=== PATIENT | male | born 2005 | race Caucasian/White ===

== ENCOUNTER 2023-10-26 12:12 | Inpatient (IN) ==
[2023-10-26] MEDS ORDERED: ONDANSETRON INJ 2 MG/ML 2 ML VIAL IV STA ×2 (12:51→14:03)
[2023-10-26 13:41] LABS: Basophils # (auto) 0.05 K/uL (0.00-0.20); Basophils % (auto) 0.3 %; Eosinophils # (auto) 0.08 K/uL (0.00-0.50); Eosinophils % (auto) 0.5 %; Hematocrit (blood only) 48.3 % (42.0-52.0); Hemoglobin 17.4 g/dl (14.0-18.0); Immature Granulocytes # (auto) 0.16 K/uL (0.01-0.20); Immature Granulocytes % (auto) 0.9 %; Lymphocytes # (auto) 0.98 K/uL (1.20-3.40); Lymphocytes % (auto) 5.6 %; Mean Corpuscular Hemoglobin 31.1 pg (25.0-34.0); Mean Corpuscular Volume 86.3 fL (80.0-100.0); Mean Platelet Volume 9.3 fL (9.4-12.4); Monocytes # (auto) 1.97 K/uL (0.11-0.59); Monocytes % (auto) 11.3 %; Neutrophils # (auto) 14.22 K/uL (1.40-6.50); Neutrophils % (auto) 81.4 %; Platelet Count 312 K/uL (130-400); RDW Coefficient of Variation 11.5 % (11.5-14.5); White Blood Count 17.46 K/ul (4.8-10.8)
[2023-10-26] MEDS ORDERED: MoRPHine SULFATE 10 MG/ML CARP/VIAL IV STA (14:03)
[2023-10-26 14:11] LABS: Alanine Aminotransferase 140 U/L (7-52); Albumin Globulin Ratio 1.5 (0.9-2); Albumin Level 4.7 gm/dl (3.4-5.0); Alkaline Phosphatase 59 U/L (34-104); Anion Gap 9 (3-11); BUN Creatinine Ratio 12.2 (10-20); Bilirubin,Total 1.1 mg/dl (0.2-1.0); Blood Urea Nitrogen 10 mg/dl (6-23); Calcium 9.7 mg/dl (8.6-10.3); Carbon Dioxide 20 mmol/L (21-32); Chloride 104 mmol/L (98-107); Est GFR (African American) 147.5 ml/min; Est GFR (Non-African American) 127.3 ml/min; Globulin 3.2 gm/dl (2.5-4.0); Glucose 130 mg/dl (70-99(Fasting)); Lipase 1829 U/L (11-82); Sodium 133 mmol/L (136-145); Total Protein 7.9 gm/dl (6.0-8.3)
--- NOTE | 2023-10-26 14:12 | Emergency Department Note ---
Impression & Plan Pancreatitis, Abdominal pain, Alcohol abuse ED Provider Note NAME: ANTOINETTE KHOURY AGE: 18 SEX: M : 2005 ARRIVES VIA: Walk-In INFORMANT: Patient ED PROVIDER(S): Roderick Frazier DO CHIEF COMPLAINT: Abdominal pain HPI: Patient is a 18-year-old male who presents to the ER for abdominal pain. This started yesterday around 11 AM. Associated with nausea and vomiting. He was seen in outside facility and believed to have pancreatitis and was discharged. They also note that he had gallstones. He denies any headache or change in vision. No chest pain or shortness of breath. He notes he drinks about a third a bottle of alcohol every other day. No dysuria, urgency, or frequency. No other exacerbating or remitting factors. He has never had this before. No previous abdominal surgeries. ADDITIONAL HISTORY OBTAINED: Per HPI Chronic Medical/Social Conditions Affecting Care: Per HPI PAST MEDICAL HISTORY:See Below PAST SURGICAL HISTORY:See Below FAMILY HISTORY:See Below SOCIAL HISTORY:See Below HOME MEDICATIONS:See Below ALLERGIES:See Below VITALS:See Below PHYSICAL EXAMINATION: GENERAL: Sitting up in bed, alert, well appearing, well nourished, no distress, non-toxic EYE EXAM: normal conjunctiva. OROPHARYNX: no exudate, no erythema, lips, buccal mucosa, and tongue normal and mucous membranes are moist NECK: supple, no nuchal rigidity, no adenopathy, non-tender LUNGS: Clear to auscultation. Normal chest wall mechanics HEART: no murmurs, S1 normal and S2 normal ABDOMEN: abdomen soft, ttp in epigastric region, normo-active bowel sounds, no masses, no rebound or guarding. UPPER EXTREMITIES: upper extremities are grossly normal. LOWER EXTREMITIES: No pitting edema. NEURO EXAM: Normal sensorium, cranial nerves II-XII grossly intact, normal speech, no gross weakness of arms, no gross weakness of legs. MEDICAL DECISION MAKING: Patient is a 18-year-old male who presents ER for severe abdominal pain which started yesterday with nausea vomiting. IV was established blood work was obtained. He was initially seen in the waiting room due to protracted waits. IV was established blood work is obtained. Labs show leukocytosis of 17,000. No significant anemia. BMP with a CO2 of 20. T. bili at 1.1. Mild transaminitis with ALT of 140. Lipase was significantly elevated at nearly 2000. CT abdomen pelvis confirms acute pancreatitis. Patient was given IV fluids, morphine, Zofran and discussed with the hospitalist Dr. Luly Waite for further evaluation management treatment. Also ordered thiamine and folic acid. Consults/Care Managements Discussions: Per MDM Triage Nursing notes reviewed. Limited review of prior medical records performed Vital Signs: reviewed and remarkable for HTN Differential diagnosis: Differential diagnoses includes but is not limited to gastritis, peptic ulcer disease, GERD, gallbladder disease, pancreatitis, small bowel obstruction, appendicitis, diverticulitis, hernia, urinary tract infection, torsion, perforation, trauma, infectious. ER treatment provided: See below Diagnostics interpreted by me include EKG and cardiac monitoring as listed below: -Cardiac Monitoring: An order was placed for continuous cardiac monitoring. The monitor shows a rate of 60 with sinus rhythm. -ECG: none -Laboratory studies:Interpreted by me as stated above in MDM and shown below. Imaging studies: Xrays: As interpreted by me:none CTs show: CT abdomen pelvis per my preliminary interpretation shows significant inflammation around the pancreas CT of the pelvis per radiology as described above Procedures:none Critical Care: None Past Med/Surg History Family History (Updated 10/26/23 @ 15:51 by Nicky Aguilar PA-C) Grandfather (Paternal) Cancer Social History Smoking Status: Current some day smoker Feels Safe at Home: Yes Allergies Allergies Allergy/AdvReac Type Severity Reaction Status Date / Time bee venom protein (honey bee) Allergy Intermediate Swelling @ Verified 10/26/23 16:10 site Home Meds Home Medications Medication Instructions Recorded Confirmed hydrocodone 5 mg-acetaminophen 300 1 tab PO DIRECTED PRN Pain 10/26/23 10/26/23 mg tablet ondansetron HCl 4 mg tablet 4 mg PO Q4 PRN Nausea 10/26/23 10/26/23 Results & Data (ED) Vital Signs Vital Signs - 24 hr 10/26/23 12:48 10/26/23 15:56 Temperature 36.3 C L Temperature Source Oral Pulse Rate 69 Pulse Rate [Apical] 56 L Respiratory Rate 20 20 Respiratory Effort / Characteristics Non-Labored Spontaneous Non-Labored Spontaneous Respiratory Depth Normal Normal Respiratory Pattern Regular Regular Blood Pressure 157/106 H Blood Pressure [Right Arm] 174/104 H Blood Pressure Mean 123 Blood Pressure Mean [Right Arm] 127 Pulse Oximetry 96 94 Oxygen Delivery Method Room Air Room Air Sepsis Recent Fever Within 48 Hours No Sepsis New/Unexplained Change in Mental Status No Sepsis Action Taken by Nursing No Action Required Laboratory Data 10/26/23 13:11 10/26/23 13:11 Lab Results 10/26/23 Range/Units 13:11 WBC 17.46 H (4.8-10.8) K/ul RBC 5.60 (4.70-6.10) M/uL Hgb 17.4 (14.0-18.0) g/dl Hct 48.3 (42.0-52.0) % MCV 86.3 (80.0-100.0) fL MCH 31.1 (25.0-34.0) pg MCHC 36.0 (32.0-36.0) g/dL RDW Std Deviation 36.0 L (36.4-46.3) fL RDW Coeff of Marilyn 11.5 (11.5-14.5) % Plt Count 312 (130-400) K/uL MPV 9.3 L (9.4-12.4) fL Immature Gran % (Auto) 0.9 % Neut % (Auto) 81.4 % Lymph % (Auto) 5.6 % [place] % (Auto) 11.3 % Eos % (Auto) 0.5 % Baso % (Auto) 0.3 % Neut # (Auto) 14.22 H (1.40-6.50) K/uL Lymph # (Auto) 0.98 L (1.20-3.40) K/uL [place] # (Auto) 1.97 H (0.11-0.59) K/uL Eos # (Auto) 0.08 (0.00-0.50) K/uL Baso # (Auto) 0.05 (0.00-0.20) K/uL Immature Gran # (Auto) 0.16 (0.01-0.20) K/uL Sodium 133 L (136-145) mmol/L Potassium TNP Chloride 104 (98-107) mmol/L Carbon Dioxide 20 L (21-32) mmol/L Anion Gap 9 (3-11) BUN 10 (6-23) mg/dl Creatinine 0.82 (0.6-1.4) mg/dl Est Cr Clr Drug Dosing 201.0 ml/min Est GFR ( Amer) 147.5 ml/min Est GFR (Non-Af Amer) 127.3 ml/min BUN/Creatinine Ratio 12.2 (10-20) Glucose 130 H (70-99(Fasting)) mg/dl Calcium 9.7 (8.6-10.3) mg/dl Total Bilirubin 1.1 H (0.2-1.0) mg/dl AST TNP ALT 140 H (7-52) U/L Alkaline Phosphatase 59 (34-104) U/L Total Protein 7.9 (6.0-8.3) gm/dl Albumin 4.7 (3.4-5.0) gm/dl Globulin 3.2 (2.5-4.0) gm/dl Albumin/Globulin Ratio 1.5 (0.9-2) Lipase 1829 H (11-82) U/L Administered Medications Hydromorphone HCl (Hydromorphone Inj 0.5 Mg/0.5 Ml Syr) 0.5 mg IV Q6H PRN PRN Reason: Severe Pain (Scale 7, 8, 9,10) Stop: 11/09/23 16:19 Last Admin: 10/26/23 16:28 Dose: 0.5 mg Documented By: CLAYTON Discontinued Medications Sodium Chloride (Nss) 1,000 mls @ 999 mls/hr IV .Q1H1M COLE Stop: 10/26/23 16:15 Last Admin: 10/26/23 16:28 Dose: 999 mls/hr Documented By: Infusion: 10/26/23 16:28 Dose: Infused Documented By: Admin: 10/26/23 15:53 Dose: 999 mls/hr Documented By: CLAYTON Thiamine HCl 100 mg/ Syringe 10 mls @ 2 mls/min IV NOW STA Stop: 10/26/23 15:38 Last Admin: 10/26/23 16:28 Dose: 2 mls/min Documented By: CLAYTON Folic Acid 1 mg/ Syringe 10 mls @ 5 mls/min IV NOW STA Stop: 10/26/23 15:35 Last Admin: 10/26/23 16:28 Dose: 5 mls/min Documented By: CLAYTON Ioversol (Optiray 320 500ml) 88 ml IV ONCE ONE Stop: 10/26/23 14:18 Last Admin: 10/26/23 14:18 Dose: 88 ml Documented By: KRISHAN Morphine Sulfate (Morphine Sulfate 10 Mg/Ml Carp/Vial) 6 mg IV NOW STA Stop: 10/26/23 14:04 Last Admin: 10/26/23 15:45 Dose: 6 mg Documented By: CLAYTON Ondansetron HCl (Ondansetron Inj 2 Mg/Ml 2 Ml Vial) 4 mg IV NOW STA Stop: 10/26/23 12:52 Last Admin: 10/26/23 13:25 Dose: 4 mg Documented By: ARS Ondansetron HCl (Ondansetron Inj 2 Mg/Ml 2 Ml Vial) 4 mg IV NOW STA Stop: 10/26/23 14:04 Last Admin: 10/26/23 16:03 Dose: 4 mg Documented By: CLAYTON Imaging Data Radiologist's Impression: Abdomen/Pelvis CT 10/26/23 13:53 CT SCAN OF THE ABDOMEN AND PELVIS WITH IV CONTRAST CLINICAL HISTORY: Generalized abdominal pain. Leukocytosis. COMPARISON STUDY: No priors. TECHNIQUE: Following the IV administration of 88 cc of Optiray 320, CT scan of the abdomen and pelvis is performed from the lung bases to the proximal femora. Images are reviewed in the axial, sagittal, and coronal planes. IV contrast was administered without complication. A dose lowering technique was utilized adhering to the principles of ALARA. CT DOSE: 1648.11 mGy.cm FINDINGS: Lung bases: The heart is normal in size and without pericardial effusion. The lung bases are clear. Liver: The contrast-enhanced liver is enlarged, measuring 23.8 cm in length. The liver demonstrates diffusely diminished attenuation indicating severe steatosis. Fatty sparing is seen adjacent to the gallbladder fossa. There is no intrahepatic biliary ductal dilatation. The hepatic veins and portal veins are patent. Gallbladder: The gallbladder is filled with vicariously excreted contrast, and is otherwise normal in appearance. Spleen: Normal in size and attenuation. Pancreas: The pancreas is enlarged and edematous. There is peripancreatic inflammation and fluid consistent with acute pancreatitis. The duct is normal in caliber. The gland enhances throughout. The splenic vein is patent. No organized peripancreatic fluid collection is seen. Adrenal glands: Unremarkable. Kidneys: The contrast enhanced kidneys are normal in size and without hydronephrosis. The kidneys enhance symmetrically. Abdominal vasculature: The abdominal aorta is normal in course and caliber. Bowel: There is no bowel obstruction. The appendix is well-visualized and normal. Peritoneum: There is a small volume of free fluid in the paracolic gutters bilaterally, as well as abdominopelvic ascites. No intraperitoneal free air is seen. There is a fat-containing umbilical hernia. Lymphadenopathy: None. Pelvic viscera: The bladder is decompressed and filled with excreted IV contrast. The prostate and seminal vesicles are normal as imaged. Skeletal structures: No lytic or blastic lesions are seen. IMPRESSION: 1. Moderate to severe acute pancreatitis. 2. The gland enhances throughout, and there is no organized peripancreatic fluid collection. 3. Small volume abdominopelvic ascites. 4. Hepatomegaly and severe steatosis. 5. Additional findings as above. ACT 112: Negative or not required by law. Electronically signed by: Nabil Mays M.D. 10/26/2023 2:34 PM Discharge Plan Visit Data Chief Complaint: Abdominal Pain Stated Complaint: PANCREATITS, GULL STONES ED Provider: Roderick Frazier Discharge Problem: Pancreatitis, Abdominal pain, Alcohol abuse Forms Stand Alone Forms: [employer] Prescriptions Prescriptions: No Action ondansetron HCl 4 mg tablet 4 mg PO Q4 PRN (Reason: Nausea) hydrocodone-acetaminophen 5-300 mg tablet 1 tab PO DIRECTED PRN (Reason: Pain) Referrals Referrals: PCP,NO [Primary Care Provider] - Discharge Problem: Pancreatitis Qualifiers: Chronicity: acute Pancreatitis type: unspecified pancreatitis type Acute pancreatitis complication: unspecified Qualified Code(s): K85.90 - Acute pancreatitis without necrosis or infection, unspecified Abdominal pain Qualifiers: Abdominal location: unspecified location Qualified Code(s): R10.9 - Unspecified abdominal pain
[2023-10-26] MEDS ORDERED: OPTIRAY 320 500ml IV ONE (14:17)
--- NOTE | 2023-10-26 14:36 | CT Scan Report ---
CT SCAN OF THE ABDOMEN AND PELVIS WITH IV CONTRAST CLINICAL HISTORY: Generalized abdominal pain. Leukocytosis. COMPARISON STUDY: No priors. TECHNIQUE: Following the IV administration of 88 cc of Optiray 320, CT scan of the abdomen and pelvi s is performed from the lung bases to the proximal femora. Images are reviewed in the axial, sagittal , and coronal planes. IV contrast was administered without complication. A dose lowering technique wa s utilized adhering to the principles of ALARA. CT DOSE: 1648.11 mGy.cm FINDINGS: Lung bases: The heart is normal in size and without pericardial effusion. The lung bases are clear. Liver: The contrast-enhanced liver is enlarged, measuring 23.8 cm in length. The liver demonstrates d iffusely diminished attenuation indicating severe steatosis. Fatty sparing is seen adjacent to the ga llbladder fossa. There is no intrahepatic biliary ductal dilatation. The hepatic veins and portal vei ns are patent. Gallbladder: The gallbladder is filled with vicariously excreted contrast, and is otherwise normal in appearance. Spleen: Normal in size and attenuation. Pancreas: The pancreas is enlarged and edematous. There is peripancreatic inflammation and fluid cons istent with acute pancreatitis. The duct is normal in caliber. The gland enhances throughout. The spl enic vein is patent. No organized peripancreatic fluid collection is seen. Adrenal glands: Unremarkable. Kidneys: The contrast enhanced kidneys are normal in size and without hydronephrosis. The kidneys enh ance symmetrically. Abdominal vasculature: The abdominal aorta is normal in course and caliber. Bowel: There is no bowel obstruction. The appendix is well-visualized and normal. Peritoneum: There is a small volume of free fluid in the paracolic gutters bilaterally, as well as ab dominopelvic ascites. No intraperitoneal free air is seen. There is a fat-containing umbilical hernia . Lymphadenopathy: None. Pelvic viscera: The bladder is decompressed and filled with excreted IV contrast. The prostate and se [place] vesicles are normal as imaged. Skeletal structures: No lytic or blastic lesions are seen. IMPRESSION: 1. Moderate to severe acute pancreatitis. 2. The gland enhances throughout, and there is no organized peripancreatic fluid collection. 3. Small volume abdominopelvic ascites. 4. Hepatomegaly and severe steatosis. 5. Additional findings as above. ACT 112: Negative or not required by law. Electronically signed by: Nabil Mays M.D. 10/26/2023 2:34 PM
[2023-10-26] MEDS ORDERED: FOLIC ACID 1 MG in SYRINGE 9.8 ML IV STA (15:34)
[2023-10-26] MEDS ORDERED: THIAMINE HCL 100 MG in SYRINGE 9 ML IV STA (15:34)
--- NOTE | 2023-10-26 15:46 | History & Physical Report ---
Date of Service October 26, 2023 Assessment & Plan (1) Pancreatitis: (2) Abdominal pain: Plan: Patient is 18-year-old male with PMH ETOH use presented to ER with c/o upper abdominal pain started yesterday. Binge drinks 4 days a week In ER afebrile, hypertensive, other vitals stable. WBC: 17, Lipase: 1829, T bili: 1.1, AST needs redrawn, ALT: 140, Alk phos: 59 CT Abd/pelvis: 1. Moderate to severe acute pancreatitis. 2. The gland enhances throughout, and there is no organized peripancreatic fluid collection. 3. Small volume abdominopelvic ascites. 4. Hepatomegaly and severe steatosis. Suspect alcoholic pancreatitis In ER given 1L NSS, morphine 6mg, Zofran, thiamine, folic acid IV Redraw labs to assess AST are pending NPO except meds LR 200ml/hr antiemetics, scheduled Toradol, oxycodone, Dilaudid prn pain GI consult CBC, CMP, lipase in am (3) Elevated blood pressure reading: Plan: In ER BP elevated 157/106 Likely secondary to pain. Control pain as above and monitor BP (4) Alcohol abuse: Plan: Drinks half 1/5 liquor 4 days a week Last drink 2 days ago In ER given IV folic acid, IV thiamine Monitor for alcohol withdrawal Alcohol cessation encouraged Thiamine, folic acid daily IV for now, plan to switch to oral with oral multivitamin when symptoms improve (5) Nicotine vapor product user: Plan: Cessation encouraged Nicotine patch DVT Prophylaxis Ambulate, SCDs Does not follow with PCP Pt was seen and care coordinated with Dr Waite. See addendum History of Present Illness Chief Complaint: abdominal pain Primary Care Provider: NO PCP Patient is 18-year-old male with PMH ETOH use presented to ER with c/o upper abdominal pain started yesterday. Patient states sharp pain to epigastric area with some radiation across upper abdomen. Pain started around 11:00am and pain has progressed. Rates pain 10/10 on pain scale. Reports was seen at [facility] ER last night and diagnosed with pancreatitis and discharged home with antiemetics and pain medications. Patient states pain progressed and this morning had vomiting after attempting to eat. States drinks half of 1/5 liquor 4 nights a week. Last drink 2 days ago. Denies history alcohol withdrawal. Reports vapes. Denies recreational drug use. Denies history pancreatitis in the past. Denies fever/chills, diaphoresis, hematemesis, diarrhea, constipation, DE, dizziness, syncope, CP, SOB, cough, sore throat, rhinorrhea, back pain, paresthesias, weakness, extremity edema, rashes, urinary symptoms. Allergies Allergy/AdvReac Type Severity Reaction Status Date / Time bee venom protein (honey bee) Allergy Intermediate Swelling @ Verified 10/26/23 16:10 site Home Medications Medication Instructions Recorded Confirmed Type hydrocodone 5 mg-acetaminophen 300 1 tab PO DIRECTED PRN Pain 10/26/23 10/26/23 History mg tablet ondansetron HCl 4 mg tablet 4 mg PO Q4 PRN Nausea 10/26/23 10/26/23 History Past Med/Surg History Medical History Nicotine vapor product user Alcohol use Surgical History (Updated 10/26/23 @ 16:53 by Nicky Aguilar PA-C) H/O rhinoplasty history nasal fracture Family History (Updated 10/26/23 @ 16:54 by Nicky Aguilar PA-C) Grandfather (Paternal) Cancer Other Diabetes Hypertension Social History (Updated 10/26/23 @ 16:54 by Nicky Aguilar PA-C) Smoking Status: Current some day smoker Tobacco Type: E-cigarettes / Vaping Hx Alcohol Use: Yes Hx Substance Use: No Feels Safe at Home: Yes Review of Systems Review of Systems: All systems reviewed & are unremarkable except as noted in HPI & below Physical Exam Physical Exam: General: + distress secondary to abdominal pain, obese Head: normocephalic, atraumatic Eyes: conjunctiva non-injected, anicteric ENT: normal inspection external ears, nose, mucous membranes mildly dry Neck: supple, trachea midline Lungs: clear, no respiratory distress, no wheezing/rhonchi/rales CV: RRR, no murmur, no pretibial edema Abd: protuberant, normal BS, soft, +tenderness epigastric, RUQ, LUQ with guarding Ext: no cyanosis, no calf tenderness Neuro: A&O x 3, no focal deficits noted, normal affect Skin: warm, dry Results & Data Results & Data Vital Signs (Past 12 Hours) Vital Signs Temp Pulse Resp BP Pulse Ox O2 Del Method 10/26/23 12:48 36.3 C L 69 20 157/106 H 96 Room Air Laboratory Results Short CBC 10/26/23 Range/Units 13:11 WBC 17.46 H (4.8-10.8) K/ul Hgb 17.4 (14.0-18.0) g/dl Hct 48.3 (42.0-52.0) % Plt Count 312 (130-400) K/uL BMP 10/26/23 13:11 Sodium 133 L Potassium TNP Chloride 104 Carbon Dioxide 20 L BUN 10 Creatinine 0.82 Glucose 130 H Calcium 9.7 Liver Function 10/26/23 Range/Units 13:11 Total Bilirubin 1.1 H (0.2-1.0) mg/dl AST TNP ALT 140 H (7-52) U/L Alkaline Phosphatase 59 (34-104) U/L Albumin 4.7 (3.4-5.0) gm/dl Diagnostic Findings Abdomen/Pelvis CT 10/26/23 13:53 CT SCAN OF THE ABDOMEN AND PELVIS WITH IV CONTRAST CLINICAL HISTORY: Generalized abdominal pain. Leukocytosis. COMPARISON STUDY: No priors. TECHNIQUE: Following the IV administration of 88 cc of Optiray 320, CT scan of the abdomen and pelvis is performed from the lung bases to the proximal femora. Images are reviewed in the axial, sagittal, and coronal planes. IV contrast was administered without complication. A dose lowering technique was utilized adhering to the principles of ALARA. CT DOSE: 1648.11 mGy.cm FINDINGS: Lung bases: The heart is normal in size and without pericardial effusion. The lung bases are clear. Liver: The contrast-enhanced liver is enlarged, measuring 23.8 cm in length. The liver demonstrates diffusely diminished attenuation indicating severe steatosis. Fatty sparing is seen adjacent to the gallbladder fossa. There is no intrahepatic biliary ductal dilatation. The hepatic veins and portal veins are patent. Gallbladder: The gallbladder is filled with vicariously excreted contrast, and is otherwise normal in appearance. Spleen: Normal in size and attenuation. Pancreas: The pancreas is enlarged and edematous. There is peripancreatic inflammation and fluid consistent with acute pancreatitis. The duct is normal in caliber. The gland enhances throughout. The splenic vein is patent. No organized peripancreatic fluid collection is seen. Adrenal glands: Unremarkable. Kidneys: The contrast enhanced kidneys are normal in size and without hydronephrosis. The kidneys enhance symmetrically. Abdominal vasculature: The abdominal aorta is normal in course and caliber. Bowel: There is no bowel obstruction. The appendix is well-visualized and normal. Peritoneum: There is a small volume of free fluid in the paracolic gutters bilaterally, as well as abdominopelvic ascites. No intraperitoneal free air is seen. There is a fat-containing umbilical hernia. Lymphadenopathy: None. Pelvic viscera: The bladder is decompressed and filled with excreted IV contrast. The prostate and seminal vesicles are normal as imaged. Skeletal structures: No lytic or blastic lesions are seen. IMPRESSION: 1. Moderate to severe acute pancreatitis. 2. The gland enhances throughout, and there is no organized peripancreatic fluid collection. 3. Small volume abdominopelvic ascites. 4. Hepatomegaly and severe steatosis. 5. Additional findings as above. ACT 112: Negative or not required by law. Electronically signed by: Nabil Mays M.D. 10/26/2023 2:34 PM Supervising Physician Co-Signing Physician Notes I have seen and examined the patient and have discussed the case with the provider above. I agree with the assessment and plan as stated. 18-year-old man presenting with alcoholic pancreatitis with severe pain. Intolerant of p.o. Reports significant alcohol use with a pattern of binge drinking later in the week and no history of alcohol withdrawal. He reports his drinking was more significant over the holidays. On exam he is visibly uncomfortable, hypertensive with a blood pressure of 174/104, afebrile and oxygenating on room air. Abdomen is soft tender to palpation in epigastric region without distention. Lungs are clear to auscultation bilaterally. Cardiac exam reveals S1-S2 heard with a regular rate and rhythm and no evidence of murmurs gallops or rubs. Physical exam is otherwise unremarkable other than the patient is obese. Lab work supports pancreatitis with an elevated white blood cell count to 17.46, ALT of 140. AST not performed as a result of hemolysis. Lipase is elevated at 1830. Chemistry panel reveals a mildly low sodium at 133. Total bilirubin is 1.1. An abdomen pelvis CT with IV confirms severe acute pancreatitis with no organized peripancreatic fluid collection. Small volume abdominal pelvic ascites is present. Hepatomegaly and severe steatosis is present. 1. Alcoholic pancreatitis 2. Alcohol abuse 3. Situational hypertension secondary to uncontrolled pain 4. Vaping 5. Morbid obesity Continue supportive care efforts including IV fluids, bowel rest and pain medications with antiemetics as needed. As noted above GI was consulted. Strict alcohol cessation strongly recommended. 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 He was advised this will be delayed if not canceled and he verbalized that his commander's were aware. DO Ravindra (1) Pancreatitis Acute pancreatitis complication: unspecified Chronicity: acute Pancreatitis type: unspecified pancreatitis type Qualified Code(s): K85.90 - Acute pancreatitis without necrosis or infection, unspecified (2) Abdominal pain Abdominal location: unspecified location Qualified Code(s): R10.9 - Unspecified abdominal pain
[2023-10-26] MEDS: SODIUM CHLORIDE 0.9% 1,000 ML IV SCH ×2 (15:53→16:28)
[2023-10-26] MEDS ORDERED: HYDROmorphone INJ 0.5 MG/0.5 ML SYR IV PRN (16:20)
[2023-10-26] MEDS ORDERED: HYDROmorphone INJ 0.5 MG/0.5 ML SYR IV STA ×3 (16:44→23:25)
[2023-10-26] MEDS ORDERED: PROMETHAZINE HCL 25 MG in SODIUM CHLORIDE 0.9% 50 ML IV STA (16:46)
[2023-10-26] MEDS: KETOROLAC TROMETHAMINE 15 MG/ML VIAL IV SCH (16:49)
[2023-10-26 18:24] LABS: Potassium 4.2 mmol/L (3.5-5.1)
[2023-10-26] MEDS ORDERED: POLYETHYLENE (MIRALAX) 17 GM PACK PO PRN (18:42)
[2023-10-26] MEDS ORDERED: LORazepam 1 MG in SYRINGE 0.5 ML IV PRN (18:42)
[2023-10-26] MEDS ORDERED: PROMETHAZINE HCL 12.5 MG in SODIUM CHLORIDE 0.9% 50 ML IV PRN (18:42)
[2023-10-26] MEDS ORDERED: PROMETHAZINE 12.5 MG/50.5 ML NSS IV ONE (19:22)
[2023-10-26] MEDS: LACTATED RINGER'S 1,000 ML IV SCH (19:45)
[2023-10-26] MEDS: NICOTINE 21 MG/24 HR TDSY TD SCH (20:01)
[2023-10-26] MEDS: HYDROmorphone INJ 0.5 MG/0.5 ML SYR IV PRN (21:19)
[2023-10-26] MEDS: ACETAMINOPHEN 1,000 MG/100 ML VIAL IV PRN (21:20)
[2023-10-26] MEDS: oxyCODONE HCL IR 5 MG TAB (IMMEDIATE RELEASE) PO PRN (22:53)
[2023-10-26] MEDS: ONDANSETRON INJ 2 MG/ML 2 ML VIAL IV PRN (23:33)
[2023-10-27] MEDS ORDERED: Nursing to Pharmacy Communication SCH ×2 (00:15→03:30)
[2023-10-27] MEDS: KETOROLAC TROMETHAMINE 15 MG/ML VIAL IV SCH ×4 (00:42→17:54)
[2023-10-27] MEDS: LACTATED RINGER'S 1,000 ML IV SCH ×5 (02:27→23:37)
[2023-10-27] MEDS: HYDROmorphone INJ 0.5 MG/0.5 ML SYR IV PRN ×4 (02:43→14:47)
[2023-10-27 06:09] LABS: Basophils # (auto) 0.05 K/uL (0.00-0.20); Basophils % (auto) 0.3 %; Eosinophils # (auto) 0.13 K/uL (0.00-0.50); Eosinophils % (auto) 0.7 %; Hematocrit (blood only) 50.4 % (42.0-52.0); Hemoglobin 17.8 g/dl (14.0-18.0); Immature Granulocytes # (auto) 0.15 K/uL (0.01-0.20); Immature Granulocytes % (auto) 0.8 %; Lymphocytes # (auto) 0.83 K/uL (1.20-3.40); Lymphocytes % (auto) 4.5 %; Mean Corpuscular Hemoglobin 31.2 pg (25.0-34.0); Mean Corpuscular Hgb Conc 35.3 g/dL (32.0-36.0); Mean Corpuscular Volume 88.4 fL (80.0-100.0); Mean Platelet Volume 9.1 fL (9.4-12.4); Monocytes # (auto) 1.94 K/uL (0.11-0.59); Monocytes % (auto) 10.5 %; Neutrophils # (auto) 15.31 K/uL (1.40-6.50); Neutrophils % (auto) 83.2 %; Platelet Count 265 K/uL (130-400); RDW Coefficient of Variation 11.9 % (11.5-14.5); RDW Standard Deviation 38.1 fL (36.4-46.3); White Blood Count 18.41 K/ul (4.8-10.8)
[2023-10-27 06:27] LABS: BUN Creatinine Ratio 11.4 (10-20); Calcium 8.6 mg/dl (8.6-10.3); Creatinine Clr Calc Pharmacy 208.4 ml/min; Est GFR (African American) 149.8 ml/min; Est GFR (Non-African American) 129.3 ml/min; Potassium 4.2 mmol/L (3.5-5.1)
[2023-10-27 06:45] LABS: Albumin Globulin Ratio 1.5 (0.9-2); Albumin Level 3.8 gm/dl (3.4-5.0); Bilirubin,Total 0.8 mg/dl (0.2-1.0); Globulin 2.6 gm/dl (2.5-4.0); Total Protein 6.4 gm/dl (6.0-8.3)
[2023-10-27] MEDS: ACETAMINOPHEN 1,000 MG/100 ML VIAL IV PRN ×2 (07:46→19:34)
[2023-10-27] MEDS ORDERED: GABAPENTIN 600 MG TAB PO ONE (08:03)
[2023-10-27] MEDS ORDERED: GABAPENTIN 1200MG ALCOHOL WITHDRAWAL LOAD PO STA (08:03)
[2023-10-27] MEDS ORDERED: LORazepam 1 MG TAB PO PRN ×2 (08:03)
[2023-10-27] MEDS ORDERED: Ativan PO Alcohol Withdrawal--Active Protocol PO PRN (08:03)
[2023-10-27] MEDS: THIAMINE HCL 100 MG in SYRINGE 9 ML IV SCH (08:30)
[2023-10-27] MEDS: FOLIC ACID 1 MG in SYRINGE 9.8 ML IV SCH (08:30)
[2023-10-27] MEDS: NICOTINE 21 MG/24 HR TDSY TD SCH (09:06)
[2023-10-27 09:30] LABS: Appearance Urine Cloudy (Clear); Bacteria Urine Automated Negative (Negative); Blood Urine Negative (Negative); Color Urine Orange; Glucose Urine UA Negative (Negative); Ketones Urine 2+ (Negative); Leukocyte Esterase Urine Trace (Negative); Nitrite Urine Positive (Negative); Protein Urine 2+ (Negative); Specific Gravity Urine 1.042 (1.000-1.030); Urobilinogen Urine Negative (Negative)
[2023-10-27 09:57] LABS: Bilirubin Urine 2+ (Negative)
[2023-10-27] MEDS: FAMOTIDINE 20 MG in SYRINGE 3 ML IV SCH ×2 (10:49→21:02)
--- NOTE | 2023-10-27 12:06 | Electrocardiogram Report ---
Test Reason : Blood Pressure : / mmHG Vent. Rate : 121 BPM Atrial Rate : 121 BPM P-R Int : 132 ms QRS Dur : 090 ms QT Int : 322 ms P-R-T Axes : 049 081 001 degrees QTc Int : 457 ms Sinus tachycardia Otherwise normal ECG No previous ECGs available Confirmed by Fredi Ignacio ([id number]) on 10/27/2023 12:05:52 PM Referred By: REFERRED SELF Confirmed By:Fredi Ignacio
--- NOTE | 2023-10-27 12:33 | Gastrointestinal Consultation ---
Date of Consultation October 27, 2023 Assessment & Plan (1) Alcohol abuse: (2) Pancreatitis: Continue high volume Lactated Ringer's at 200 ml/hour Continue Narcotic analgesics and antiemetics as needed Continue NPO at present Discussed need to abstain from all alcohol as it is a known pancreatic toxin and he is susceptible to recurrent bouts of acute pancreatitis during his lifetime, which will make him at risk for chronic pancreatitis. History of Present Illness Reason for Consultation: Acute Pancreatitis Attending Physician: Krzysztof Schmitt MD History of Present Illness Jabari Motta is a 18 yo CM who presented to the ER with complaints of severe abdominal pain. He admits to having multiple days of binge drinking over the holidays. Upon arrival to the ER, he was noted to have an elevated WBC 17, ALT 140, Bili Total 1.1 and a Lipase of 1830. A CT abd/pelvis showed findings consistent with moderate to severe acute pancreatitis. He was kept NPO, given high volume Lactated ringer's at 200 ml/hour, and narctoic analgesics and antiemetics PRN. At the time I saw the patient he was continuing to complain of severe mid-epigastric abdominal pain, rated as 8/10 in intensity, sharp and stabbing, radiating to his back. He states he believes it is time for his pain medication. He denies any history of alcohol withdrawal, alcohol related arrests or history of rehab either inpatient or outpatient for alcohol or other illicit substances. He denies any fevers, chills, nausea, vomiting, diarrhea, hematemesis, melena, or hematochezia. He has no further complaints. Allergies Allergy/AdvReac Type Severity Reaction Status Date / Time bee venom protein (honey bee) Allergy Intermediate Swelling @ Verified 10/26/23 16:10 site Home Medications Medication Instructions Recorded Confirmed Type hydrocodone 5 mg-acetaminophen 300 1 tab PO DIRECTED PRN Pain 10/26/23 10/26/23 History mg tablet ondansetron HCl 4 mg tablet 4 mg PO Q4 PRN Nausea 10/26/23 10/26/23 History Patient History Medical History Nicotine vapor product user Alcohol use Surgical History H/O rhinoplasty history nasal fracture Family History Grandfather (Paternal) Cancer Other Diabetes Hypertension Social History Smoking Status: Current every day smoker Tobacco Type: E-cigarettes / Vaping Hx Alcohol Use: Yes Hx Substance Use: No Preferred Language: Nepali Communication Ability: Effective Hydrochloric Area Supervisor Required: No Beliefs That Will Affect Care: None Current Living Situation: Other Current Living Situation Comment: has a roommate Feels Safe at Home: Yes Safety Concerns: Feels Safe At This Time Assistive Devices: None Review of Systems Review of Systems: All systems reviewed & are unremarkable except as noted in Subjective Physical Exam Constitutional: WD/WN, vitals as above Respiratory: normal respiratory effort, lungs clear to auscultation Cardiovascular: RRR, no murmur, no edema Gastrointestinal (Abdomen): Inspection/Auscultation: + abdomen distended; + abnormal bowel sounds Percussion/Palpation: + abdomen tender and abdomen soft Skin: no rashes, warm and dry Psychiatric: A+Ox3, euthymic affect Results & Data Vital Signs (Past 12 Hours) Vital Signs Temp Pulse Pulse Resp BP BP Pulse Ox 10/27/23 11:57 36.9 C 132 H 20 161/104 H 95 10/27/23 10:04 135 H 22 152/97 H 10/27/23 08:31 37.0 C 124 H 18 182/87 H 96 10/27/23 04:05 36.8 C 109 H 18 165/122 H 97 O2 Del Method 10/27/23 11:57 Room Air 10/27/23 10:04 Room Air 10/27/23 08:31 Room Air 10/27/23 04:05 Room Air PG Care Time/CCT Total # of Minutes Spent Total Time Spent with Patient: Total time spent is greater than 50% in coordination of care (as documented) at patient's floor/unit and/or counseling patient: Coding Level of Care Code 56741 IN/OBS CONSULT LVL 4,60M Diagnoses Alcohol abuse F10.10 Pancreatitis K85.90 Acute pancreatitis complication: unspecified Chronicity: acute Pancreatitis type: unspecified pancreatitis type (2) Pancreatitis Acute pancreatitis complication: unspecified Chronicity: acute Pancreatitis type: unspecified pancreatitis type Qualified Code(s): K85.90 - Acute pancreatitis without necrosis or infection, unspecified
--- NOTE | 2023-10-27 15:22 | Hospitalist Progress Note ---
Date of Service October 27, 2023 Assessment & Plan (1) Pancreatitis: (2) Abdominal pain: Plan: Patient is 18-year-old male with PMH ETOH use presented to ER with c/o upper abdominal pain started yesterday. Binge drinks 4 days a week. In ER afebrile, hypertensive, other vitals stable. WBC: 17, Lipase: 1829, T bili: 1.1, AST needs redrawn, ALT: 140, Alk phos: 59. Acute pancreatitis Secondary to alcohol abuse --CT Abd/pelvis: Moderate to severe acute pancreatitis. The gland enhances throughout, and there is no organized peripancreatic fluid collection. Small volume abdominopelvic ascites. Hepatomegaly and severe steatosis. --Lipase elevated -- Continue IV fluids, bowel rest -- Antiemetics as needed, pain control --Appreciate GI input --Counseled to quit alcohol use -- Monitor LFTs, Lipase (3) Elevated blood pressure reading: Plan: In ER BP elevated 157/106 Sinus tachycardia Likely secondary to pain Pain control Monitor (4) Alcohol abuse: Plan: Alcohol use disorder Alcohol withdrawal Started on gabapentin protocol Continue thiamine, folic acid Monitor for withdrawal Counseled to quit drinking (5) Nicotine vapor product user: Plan: Cessation encouraged Nicotine patch DVT Px Ambulate, SCDs Admission and Anticipated Discharge Date Admission Date: October 26, 2023 Subjective Patient is seen and examined at bedside States having abdominal pain, radiating sometimes up to the chest Nausea resolved Sinus tachycardia on monitor Denies any dyspnea, dizziness No other complaints Review of Systems Review of Systems: All systems reviewed & are unremarkable except as noted in Subjective Physical Exam Physical Exam: Physical Exam: Vitals signs as noted above General Appearance:Obese, no apparent distress Head: normocephalic, Atraumatic Eyes: normal inspection, EOMI Neck: supple, Trachea midline Respiratory/Chest: Normal breath sounds, CTA, No accessory muscle use Cardiovascular: S1, S2, No murmur, +Tachycardia Abdomen/GI:Soft, Epigastric tender, mildly distended, Bowel sounds present Extremities/Musculoskeletal:normal inspection, no edema Neurologic/Psych:AAOX3, grossly no focal neurological deficits Skin: normal color, warm Results & Data Results & Data Vital Signs (Past 12 Hours) Vital Signs Temp Pulse Pulse Pulse Resp BP BP 10/27/23 14:49 37.1 C 133 H 20 158/84 H 10/27/23 11:57 36.9 C 132 H 20 161/104 H 10/27/23 10:04 135 H 22 152/97 H 10/27/23 08:31 37.0 C 124 H 18 182/87 H 10/27/23 08:00 124 H 10/27/23 04:05 36.8 C 109 H 18 165/122 H Pulse Ox O2 Del Method 10/27/23 14:49 10/27/23 11:57 95 Room Air 10/27/23 10:04 Room Air 10/27/23 08:31 96 Room Air 10/27/23 08:00 10/27/23 04:05 97 Room Air Laboratory Results Short CBC 10/27/23 Range/Units 05:43 WBC 18.41 H (4.8-10.8) K/ul Hgb 17.8 (14.0-18.0) g/dl Hct 50.4 (42.0-52.0) % Plt Count 265 (130-400) K/uL BMP 10/26/23 10/27/23 17:16 05:43 Sodium 134 L Potassium 4.2 4.2 Chloride 105 Carbon Dioxide 19 L BUN 9 Creatinine 0.79 Glucose 132 H Calcium 8.6 Liver Function 10/26/23 10/27/23 Range/Units 17:16 05:43 Total Bilirubin 0.8 (0.2-1.0) mg/dl AST 36 26 (13-39) U/L ALT 79 H (7-52) U/L Alkaline Phosphatase 51 (34-104) U/L Albumin 3.8 (3.4-5.0) gm/dl Urine 10/27/23 Range/Units Unknown Urine Color [place] Urine Appearance Cloudy A (Clear) Urine pH 6.0 (4.5-7.5) Ur Specific [place] 1.042 H (1.000-1.030) Urine Protein 2+ H (Negative) Urine Glucose (UA) Negative (Negative) (1) Pancreatitis Acute pancreatitis complication: unspecified Chronicity: acute Pancreatitis type: unspecified pancreatitis type Qualified Code(s): K85.90 - Acute pancreatitis without necrosis or infection, unspecified (2) Abdominal pain Abdominal location: unspecified location Qualified Code(s): R10.9 - Unspecified abdominal pain
[2023-10-27] MEDS: GABAPENTIN 600 MG TAB PO SCH ×2 (16:11→21:02)
[2023-10-27] MEDS: MoRPHine SULFATE 2 MG/ML CARP IV PRN ×2 (16:18→20:52)
[2023-10-27] MEDS ORDERED: MoRPHine SULFATE 4 MG/ML 1 ML CARP\\VIAL IV STA (22:35)
[2023-10-27] MEDS: LORazepam 1 MG TAB PO PRN (22:47)
[2023-10-28] MEDS: KETOROLAC TROMETHAMINE 15 MG/ML VIAL IV SCH (01:02)
[2023-10-28] MEDS: GABAPENTIN 600 MG TAB PO SCH ×3 (03:31→21:04)
[2023-10-28] MEDS: MoRPHine SULFATE 2 MG/ML CARP IV PRN ×5 (03:31→23:45)
[2023-10-28] MEDS: ACETAMINOPHEN 1,000 MG/100 ML VIAL IV PRN ×3 (04:11→21:18)
[2023-10-28] MEDS: LACTATED RINGER'S 1,000 ML IV SCH ×4 (05:03→23:51)
[2023-10-28] MEDS ORDERED: MoRPHine SULFATE 4 MG/ML 1 ML CARP\\VIAL IV STA (05:52)
[2023-10-28] MEDS: LORazepam 1 MG TAB PO PRN (06:15)
[2023-10-28] MEDS: LABETALOL HCL IV 5 MG/ML 20ML IV PRN ×2 (06:15→16:36)
[2023-10-28] MEDS: FAMOTIDINE 20 MG in SYRINGE 3 ML IV SCH ×2 (08:00→21:10)
[2023-10-28] MEDS: NICOTINE 21 MG/24 HR TDSY TD SCH (08:00)
[2023-10-28] MEDS: THIAMINE HCL 100 MG in SYRINGE 9 ML IV SCH (08:00)
[2023-10-28] MEDS: FOLIC ACID 1 MG in SYRINGE 9.8 ML IV SCH (08:00)
[2023-10-28 08:02] LABS: Hematocrit (blood only) 45.2 % (42.0-52.0); Hemoglobin 15.7 g/dl (14.0-18.0); Mean Corpuscular Hemoglobin 30.9 pg (25.0-34.0); Mean Corpuscular Hgb Conc 34.7 g/dL (32.0-36.0); Mean Platelet Volume 9.5 fL (9.4-12.4); Platelet Count 210 K/uL (130-400); RDW Coefficient of Variation 11.9 % (11.5-14.5); RDW Standard Deviation 38.1 fL (36.4-46.3); Red Blood Count 5.08 M/uL (4.70-6.10); White Blood Count 17.26 K/ul (4.8-10.8)
[2023-10-28] MEDS: oxyCODONE HCL IR 5 MG TAB (IMMEDIATE RELEASE) PO PRN ×2 (08:07→17:31)
[2023-10-28 08:08] LABS: Anion Gap 8 (3-11); BUN Creatinine Ratio 11.8 (10-20); Blood Urea Nitrogen 9 mg/dl (6-23); Calcium 7.7 mg/dl (8.6-10.3); Carbon Dioxide 23 mmol/L (21-32); Chloride 102 mmol/L (98-107); Creatinine Clr Calc Pharmacy 216.5 ml/min; Est GFR (African American) > 150.0 ml/min; Est GFR (Non-African American) 131.3 ml/min; Glucose 97 mg/dl (70-99(Fasting)); Potassium 3.7 mmol/L (3.5-5.1); Sodium 133 mmol/L (136-145)
[2023-10-28 08:28] LABS: Alanine Aminotransferase 43 U/L (7-52); Albumin Globulin Ratio 1.4 (0.9-2); Albumin Level 3.1 gm/dl (3.4-5.0); Alkaline Phosphatase 44 U/L (34-104); Aspartate Aminotransferase 20 U/L (13-39); Bilirubin,Total 1.1 mg/dl (0.2-1.0); Globulin 2.2 gm/dl (2.5-4.0); Lipase 776 U/L (11-82); Magnesium 1.3 mg/dl (1.7-2.4); Total Protein 5.3 gm/dl (6.0-8.3)
[2023-10-28] MEDS: MAGNESIUM SULFATE / D5W 1 GM/100 ML BAG IV SCH ×3 (09:00→12:28)
[2023-10-28] MEDS ORDERED: HYDROmorphone INJ 1 MG/ML SYRINGE IV ONE (13:35)
--- NOTE | 2023-10-28 16:57 | Hospitalist Progress Note ---
Date of Service October 28, 2023 Assessment & Plan (1) Pancreatitis: (2) Abdominal pain: Plan: Patient is 18-year-old male with PMH ETOH use presented to ER with c/o upper abdominal pain started yesterday. Binge drinks 4 days a week. In ER afebrile, hypertensive, other vitals stable. WBC: 17, Lipase: 1829, T bili: 1.1, AST needs redrawn, ALT: 140, Alk phos: 59. Acute pancreatitis Secondary to alcohol abuse --CT Abd/pelvis: Moderate to severe acute pancreatitis. The gland enhances throughout, and there is no organized peripancreatic fluid collection. Small volume abdominopelvic ascites. Hepatomegaly and severe steatosis. --Lipase trending down -- Continue IV fluids, bowel rest -- Antiemetics as needed, pain control --Appreciate GI input --Counseled to quit alcohol use -- Monitor LFTs, Lipase -- Continue current management (3) Elevated blood pressure reading: Plan: Hypertensive urgency Sinus tachycardia Significant tachycardia with ambulation DD: POTS Pain contributing as well Pain control IV labetalol as needed Started on low-dose metoprolol Consulted cardiology (4) Alcohol abuse: Plan: Alcohol use disorder Alcohol withdrawal Started on gabapentin protocol Continue thiamine, folic acid Monitor for withdrawal Counseled to quit drinking No significant alcohol withdrawal symptoms currently (5) Nicotine vapor product user: Plan: Cessation encouraged Nicotine patch DVT Px Ambulate, SCDs Admission and Anticipated Discharge Date Admission Date: October 26, 2023 Subjective Patient is seen and examined at bedside Abdominal pain slightly better during my encounter Reported significant abdominal pain with exertion to RN Had bowel movements this morning Remains tachycardic on monitor No significant alcohol withdrawal symptoms currently Denies any chest pain, dyspnea, dizziness No other complaints Review of Systems Review of Systems: All systems reviewed & are unremarkable except as noted in Subjective Physical Exam Physical Exam: Physical Exam: Vitals signs as noted above General Appearance:Obese, no apparent distress Head: normocephalic, Atraumatic Eyes: normal inspection, EOMI Neck: supple, Trachea midline Respiratory/Chest: Normal breath sounds, CTA, No accessory muscle use Cardiovascular: S1, S2, No murmur, +Tachycardia Abdomen/GI:Soft, Epigastric tender, mildly distended, Bowel sounds present Extremities/Musculoskeletal:normal inspection, no edema Neurologic/Psych:AAOX3, grossly no focal neurological deficits Skin: normal color, warm Results & Data Results & Data Vital Signs (Past 12 Hours) Vital Signs Temp Pulse Pulse Resp BP BP Pulse Ox 10/28/23 16:36 118 H 185/116 H 10/28/23 16:25 36.5 C 118 H 22 185/116 H 98 10/28/23 11:20 37.2 C 124 H 20 179/99 H 92 10/28/23 08:16 37.5 C 111 H 20 167/97 H 96 10/28/23 08:00 128 H 10/28/23 08:00 10/28/23 06:30 109 H 159/94 H 10/28/23 06:15 127 H 160/82 H 10/28/23 06:05 36.5 C 136 H 22 160/82 H 93 O2 Del Method O2 Flow Rate 10/28/23 16:36 10/28/23 16:25 Nasal Cannula 2 10/28/23 11:20 Room Air 10/28/23 08:16 Room Air 10/28/23 08:00 10/28/23 08:00 Nasal Cannula 2 10/28/23 06:30 10/28/23 06:15 10/28/23 06:05 Nasal Cannula 2 Laboratory Results Short CBC 10/28/23 Range/Units 07:16 WBC 17.26 H (4.8-10.8) K/ul Hgb 15.7 (14.0-18.0) g/dl Hct 45.2 (42.0-52.0) % Plt Count 210 (130-400) K/uL BMP 10/28/23 07:16 Sodium 133 L Potassium 3.7 Chloride 102 Carbon Dioxide 23 BUN 9 Creatinine 0.76 Glucose 97 Calcium 7.7 L Liver Function 10/28/23 Range/Units 07:16 Total Bilirubin 1.1 H (0.2-1.0) mg/dl AST 20 (13-39) U/L ALT 43 (7-52) U/L Alkaline Phosphatase 44 (34-104) U/L Albumin 3.1 L (3.4-5.0) gm/dl (1) Pancreatitis Acute pancreatitis complication: unspecified Chronicity: acute Pancreatitis type: unspecified pancreatitis type Qualified Code(s): K85.90 - Acute pancreatitis without necrosis or infection, unspecified (2) Abdominal pain Abdominal location: unspecified location Qualified Code(s): R10.9 - Unspecified abdominal pain
[2023-10-28] MEDS: METOPROLOL TARTRATE 25 MG TAB PO SCH ×2 (18:42→21:04)
[2023-10-28] MEDS ORDERED: Nursing to Pharmacy Communication SCH (21:00)
[2023-10-28] MEDS ORDERED: NICOTINE 21 MG/24 HR TDSY TD ONE (21:01)
[2023-10-28] MEDS ORDERED: METOPROLOL TARTRATE 1 MG/ML VIAL IV STA (22:10)
[2023-10-28] MEDS ORDERED: OPTIRAY 320 500ml IV ONE (23:21)
[2023-10-29] MEDS ORDERED: Nursing to Pharmacy Communication SCH ×2 (00:15→22:45)
[2023-10-29] MEDS: MoRPHine SULFATE 2 MG/ML CARP IV PRN ×5 (03:48→20:00)
[2023-10-29] MEDS: oxyCODONE HCL IR 5 MG TAB (IMMEDIATE RELEASE) PO PRN (05:06)
[2023-10-29] MEDS: SIMETHICONE 80 MG CHEW PO PRN ×2 (05:34→11:21)
[2023-10-29] MEDS: ACETAMINOPHEN 1,000 MG/100 ML VIAL IV PRN ×2 (05:37→13:09)
--- NOTE | 2023-10-29 07:02 | CT Scan Report ---
Exam(s): CT ABDOMEN + PELVIS With Contrast IV Amt: 89ML OPTIRAY 320 EXAM: CT Abdomen and Pelvis With Intravenous Contrast CLINICAL HISTORY: Reason for exam: abdominal distension, increased pain per pt. TECHNIQUE: Axial computed tomography images of the abdomen and pelvis with intravenous contrast. Automated exposure control was utilized for the study. A dose lowering technique was utilized adhering to the principles of ALARA. CONTRAST: Patient received 89ML OPTIRAY 320 of IV contrast COMPARISON: 10/26/23 FINDINGS: Lung bases: Bilateral moderate sized pleural effusions with dependent atelectasis. ABDOMEN: Liver: Fatty infiltration of the liver. Gallbladder and bile ducts: Unremarkable. No ductal dilation. No evidence of acute cholecystitis or cholelithiasis. Pancreas: There are changes of acute edematous pancreatitis with extensive peripancreatic inflammatory changes. Pancreatic duct is not dilated. Spleen: Unremarkable. No splenomegaly. Adrenals: Unremarkable. No mass. Kidneys and ureters: Unremarkable. No solid mass. No hydronephrosis. Stomach and bowel: Unremarkable. No obstruction. No mucosal thickening. PELVIS: Appendix: No findings to suggest acute appendicitis. Bladder: Unremarkable. No mass. Reproductive: Unremarkable as visualized. ABDOMEN and PELVIS: Intraperitoneal space: Mild to moderate ascites. No free air. Bones/joints: No acute fracture. No dislocation. Soft tissues: Unremarkable. Vasculature: Unremarkable. No abdominal aortic aneurysm. Lymph nodes: Unremarkable. No enlarged lymph nodes. IMPRESSION: 1. Acute edematous pancreatitis 2. Mild to moderate ascites 3. Fatty liver 4. Bilateral moderate sized pleural effusions Electronically signed by: Jose De Jesus Castro MD 10/29/23 07:01 AM
[2023-10-29] MEDS: METOPROLOL TARTRATE 25 MG TAB PO SCH ×2 (08:27→21:32)
[2023-10-29] MEDS: FOLIC ACID 1 MG in SYRINGE 9.8 ML IV SCH (08:28)
[2023-10-29] MEDS: GABAPENTIN 600 MG TAB PO SCH ×2 (08:28→21:32)
[2023-10-29] MEDS: THIAMINE HCL 100 MG in SYRINGE 9 ML IV SCH (08:28)
[2023-10-29] MEDS: NICOTINE 21 MG/24 HR TDSY TD SCH (08:32)
[2023-10-29] MEDS: LACTATED RINGER'S 1,000 ML IV SCH ×2 (08:33→17:39)
[2023-10-29 09:28] LABS: Hematocrit (blood only) 41.2 % (42.0-52.0); Hemoglobin 14.5 g/dl (14.0-18.0); Mean Corpuscular Hemoglobin 31.4 pg (25.0-34.0); Mean Corpuscular Hgb Conc 35.2 g/dL (32.0-36.0); Mean Corpuscular Volume 89.2 fL (80.0-100.0); Mean Platelet Volume 9.4 fL (9.4-12.4); Platelet Count 227 K/uL (130-400); RDW Coefficient of Variation 11.6 % (11.5-14.5); RDW Standard Deviation 37.2 fL (36.4-46.3); Red Blood Count 4.62 M/uL (4.70-6.10); White Blood Count 16.73 K/ul (4.8-10.8)
--- NOTE | 2023-10-29 09:41 | Gastroenterology Progress Note ---
Date of Service October 29, 2023 Assessment & Plan (1) Alcohol abuse: (2) Pancreatitis: Plan: Recommend continuing current therapy and supportive care No evidence of infection at present Discussed with hospitalist team and decreased IVF rate Continue narcotic analgesics and antiemetics as needed Again advised abstinence from all alcohol in the future as it is a known pancreatic toxin. Admission and Anticipated Discharge Date Admission Date: October 26, 2023 Subjective Feeling less pain today than previous. Still complains of 2/10 mid-epigastric pain, radiating to back. Controlled with Narcotic analgesics. Denies any fevers, chills, nausea, vomiting, hematemesis, melena or hematochezia. He states he does not have an appetite at present. Review of Systems Review of Systems: All systems reviewed & are unremarkable except as noted in Subjective Physical Exam Constitutional: WD/WN, vitals as above Respiratory: normal respiratory effort, lungs clear to auscultation Cardiovascular: RRR, no murmur, no edema Gastrointestinal (Abdomen): Inspection/Auscultation: abdomen normal to inspection and normal bowel sounds; abdomen not distended Percussion/Palpation: + abdomen tender and abdomen soft; no guarding and abdomen not rigid Psychiatric: A+Ox3, euthymic affect Results & Data Results & Data Vital Signs (Past 12 Hours) Vital Signs Temp Pulse Pulse Resp BP BP BP 10/29/23 08:16 36.9 C 113 H 16 172/81 H 10/29/23 07:24 132 H 10/29/23 03:52 37.5 C 120 H 18 148/86 H 10/28/23 23:57 108 H 163/93 H 10/28/23 23:37 36.8 C 119 H 20 152/83 H 10/28/23 23:05 108 H 171/109 H 10/28/23 22:46 122 H 169/86 H 10/28/23 21:56 116 H Pulse Ox O2 Del Method 10/29/23 08:16 95 Room Air 10/29/23 07:24 10/29/23 03:52 93 Room Air 10/28/23 23:57 10/28/23 23:37 93 Room Air 10/28/23 23:05 10/28/23 22:46 10/28/23 21:56 PG Care Time/CCT Total # of Minutes Spent Total Time Spent with Patient: Total time spent is greater than 50% in coordination of care (as documented) at patient's floor/unit and/or counseling patient: Coding Level of Care Code 09274 SUB INP/OBS CARE 350MIN Diagnoses Alcohol abuse F10.10 Pancreatitis K85.90 Acute pancreatitis complication: unspecified Chronicity: acute Pancreatitis type: unspecified pancreatitis type (2) Pancreatitis Acute pancreatitis complication: unspecified Chronicity: acute Pancreatitis type: unspecified pancreatitis type Qualified Code(s): K85.90 - Acute pancreatitis without necrosis or infection, unspecified
[2023-10-29 09:46] LABS: Alanine Aminotransferase 34 U/L (7-52); Albumin Globulin Ratio 1.2 (0.9-2); Albumin Level 3.3 gm/dl (3.4-5.0); Alkaline Phosphatase 48 U/L (34-104); Anion Gap 9 (3-11); Aspartate Aminotransferase 18 U/L (13-39); BUN Creatinine Ratio 12.5 (10-20); Blood Urea Nitrogen 9 mg/dl (6-23); Calcium 8.3 mg/dl (8.6-10.3); Carbon Dioxide 24 mmol/L (21-32); Chloride 98 mmol/L (98-107); Est GFR (African American) > 150.0 ml/min; Est GFR (Non-African American) 134.3 ml/min; Globulin 2.7 gm/dl (2.5-4.0); Glucose 95 mg/dl (70-99(Fasting)); Magnesium 1.9 mg/dl (1.7-2.4); Potassium 4.1 mmol/L (3.5-5.1); Sodium 131 mmol/L (136-145)
--- NOTE | 2023-10-29 10:27 | Ultrasound Report ---
ULTRASOUND TO ASSESS FOR ASCITES CLINICAL HISTORY: Ascites. COMPARISON STUDY: CT of the abdomen and pelvis October 28, 2023. FINDINGS: Incidental note is made of increased hepatic echogenicity consistent with hepatic steatosis , as shown on CT. There is no perihepatic ascites. There is a small amount of ascites within the left upper quadrant and both lower quadrants. IMPRESSION: 1. Small amount of ascites. 2. Hepatic steatosis. ACT 112: Negative or not required by law. Electronically signed by: Newton Hdez M.D. 10/29/2023 10:25 AM
[2023-10-29] MEDS: FAMOTIDINE 20 MG in SYRINGE 3 ML IV SCH ×2 (10:48→21:32)
--- NOTE | 2023-10-29 11:07 | Cardiology Consultation ---
Date of Consultation October 29, 2023 Assessment & Plan (1) Acute pancreatitis: (2) Abdominal pain: (3) Sinus tachycardia: (4) Elevated blood pressure reading: Plan 18-year-old male admitted with acute pancreatitis, severe abdominal pain with elevated blood pressure and heart rate EKG reflects sinus tachycardia otherwise no acute finding No evidence to suggest POTS syndrome Impression: Sinus tachycardia, hypertension being driven by pain, possible alcohol withdrawal. Recommendations: Treat underlying concern with acute pancreatitis and pain, alcohol withdrawal. Would treat heart rate and blood pressure transiently with room to titrate beta-sabas substantially higher. Elevated heart rate and blood pressure are concerning the setting of acute pancreatitis as possible systemic involvement. Would continue to reassess primary presentation diagnosis History of Present Illness Reason for Consultation: Sinus tachycardia, hypertension, question POTS Requesting Physician: Dr. Schmitt Attending Physician: Krzysztof Schmitt MD History of Present Illness Patient is a 18-year-old male admitted with acute pancreatitis, severe abdominal pain, alcohol withdrawal Heart rate and blood pressure elevated since shortly after admission No prior history of hypertension, tachycardia, syncope, near syncope no history of cardiac disease, rheumatic fever scarlet fever or heart murmur. Previously physically active without limitation. Currently without fevers or chills but complaining of pain in abdomen Has remained n.p.o. 1 bowel movement yesterday No bleeding issues Currently afebrile Allergies Allergy/AdvReac Type Severity Reaction Status Date / Time bee venom protein (honey bee) Allergy Intermediate Swelling @ Verified 10/26/23 16:10 site Home Medications Medication Instructions Recorded Confirmed Type hydrocodone 5 mg-acetaminophen 300 1 tab PO DIRECTED PRN Pain 10/26/23 10/26/23 History mg tablet ondansetron HCl 4 mg tablet 4 mg PO Q4 PRN Nausea 10/26/23 10/26/23 History Patient History Medical History Nicotine vapor product user Alcohol use Surgical History H/O rhinoplasty history nasal fracture Family History Grandfather (Paternal) Cancer Other Diabetes Hypertension Social History Smoking Status: Current every day smoker Tobacco Type: E-cigarettes / Vaping Hx Alcohol Use: Yes Hx Substance Use: No Preferred Language: Malay Communication Ability: Effective Health Services Manager Required: No Beliefs That Will Affect Care: None Current Living Situation: Other Current Living Situation Comment: has a roommate Feels Safe at Home: Yes Safety Concerns: Feels Safe At This Time Assistive Devices: None Review of Systems Review of Systems: All systems reviewed & are unremarkable except as noted in HPI & below Physical Exam Constitutional: + ill appearing and + obese Eyes: PERRL, conjunctivae normal, anicteric sclerae ENMT: external ear and nose normal, oropharynx normal Neck: trachea midline, no thyromegaly Respiratory: normal respiratory effort, lungs clear to auscultation Cardiovascular: Rate/Rhythm: regular rhythm and + tachycardic Heart Sounds: normal S1 and normal S2; no gallop and no murmur Palpation: normal PMI Vessels: normal carotid upstroke and radial pulses present; no JVD and no carotid bruit Extremities: no edema Gastrointestinal (Abdomen): Percussion/Palpation: + abdomen tender and + guarding Musculoskeletal: no cyanosis or clubbing, extremities motor strength 5/5 Skin: no rashes, warm and dry Neurologic: PERRL, EOMI, accommodation nl, no face palsy, no dysarthria Psychiatric: A+Ox3, euthymic affect Results & Data Vital Signs (Past 12 Hours) Vital Signs Temp Pulse Pulse Resp BP BP BP 10/29/23 08:16 36.9 C 113 H 16 172/81 H 10/29/23 07:24 132 H 10/29/23 03:52 37.5 C 120 H 18 148/86 H 10/28/23 23:57 108 H 163/93 H 10/28/23 23:37 36.8 C 119 H 20 152/83 H 10/28/23 23:05 108 H 171/109 H Pulse Ox O2 Del Method 10/29/23 08:16 95 Room Air 10/29/23 07:24 10/29/23 03:52 93 Room Air 10/28/23 23:57 10/28/23 23:37 93 Room Air 10/28/23 23:05 Laboratory Results Laboratory Results WBC 16.73 K/ul (4.8-10.8) H 10/29/23 09:05 RBC 4.62 M/uL (4.70-6.10) L 10/29/23 09:05 Hgb 14.5 g/dl (14.0-18.0) 10/29/23 09:05 Hct 41.2 % (42.0-52.0) L 10/29/23 09:05 MCV 89.2 fL (80.0-100.0) 10/29/23 09:05 MCH 31.4 pg (25.0-34.0) 10/29/23 09:05 MCHC 35.2 g/dL (32.0-36.0) 10/29/23 09:05 RDW Std Deviation 37.2 fL (36.4-46.3) 10/29/23 09:05 RDW Coeff of Marilyn 11.6 % (11.5-14.5) 10/29/23 09:05 Plt Count 227 K/uL (130-400) 10/29/23 09:05 MPV 9.4 fL (9.4-12.4) 10/29/23 09:05 Immature Gran % (Auto) 0.8 % 10/27/23 05:43 Neut % (Auto) 83.2 % 10/27/23 05:43 Lymph % (Auto) 4.5 % 10/27/23 05:43 [place] % (Auto) 10.5 % 10/27/23 05:43 Eos % (Auto) 0.7 % 10/27/23 05:43 Baso % (Auto) 0.3 % 10/27/23 05:43 Neut # (Auto) 15.31 K/uL (1.40-6.50) H 10/27/23 05:43 Lymph # (Auto) 0.83 K/uL (1.20-3.40) L 10/27/23 05:43 [place] # (Auto) 1.94 K/uL (0.11-0.59) H 10/27/23 05:43 Eos # (Auto) 0.13 K/uL (0.00-0.50) 10/27/23 05:43 Baso # (Auto) 0.05 K/uL (0.00-0.20) 10/27/23 05:43 Immature Gran # (Auto) 0.15 K/uL (0.01-0.20) 10/27/23 05:43 Sodium 131 mmol/L (136-145) L 10/29/23 09:05 Potassium 4.1 mmol/L (3.5-5.1) 10/29/23 09:05 Chloride 98 mmol/L (98-107) 10/29/23 09:05 Carbon Dioxide 24 mmol/L (21-32) 10/29/23 09:05 Anion Gap 9 (3-11) 10/29/23 09:05 BUN 9 mg/dl (6-23) 10/29/23 09:05 Creatinine 0.72 mg/dl (0.6-1.4) 10/29/23 09:05 Est Cr Clr Drug Dosing 235.0 ml/min 10/29/23 09:05 Est GFR ( Amer) > 150.0 ml/min 10/29/23 09:05 Est GFR (Non-Af Amer) 134.3 ml/min 10/29/23 09:05 BUN/Creatinine Ratio 12.5 (10-20) 10/29/23 09:05 Glucose 95 mg/dl (70-99(Fasting)) 10/29/23 09:05 Calcium 8.3 mg/dl (8.6-10.3) L 10/29/23 09:05 Magnesium 1.9 mg/dl (1.7-2.4) 10/29/23 09:05 Total Bilirubin 1.0 mg/dl (0.2-1.0) 10/29/23 09:05 AST 18 U/L (13-39) 10/29/23 09:05 ALT 34 U/L (7-52) 10/29/23 09:05 Alkaline Phosphatase 48 U/L (34-104) 10/29/23 09:05 Total Protein 6.0 gm/dl (6.0-8.3) 10/29/23 09:05 Albumin 3.3 gm/dl (3.4-5.0) L 10/29/23 09:05 Globulin 2.7 gm/dl (2.5-4.0) 10/29/23 09:05 Albumin/Globulin Ratio 1.2 (0.9-2) 10/29/23 09:05 Lipase 776 U/L (11-82) H 10/28/23 07:16 Urine Color [place] 10/27/23 Unknown Urine Appearance Cloudy (Clear) A 10/27/23 Unknown Urine pH 6.0 (4.5-7.5) 10/27/23 Unknown Ur Specific [place] 1.042 (1.000-1.030) H 10/27/23 Unknown Urine Protein 2+ (Negative) H 10/27/23 Unknown Urine Glucose (UA) Negative (Negative) 10/27/23 Unknown Urine Ketones 2+ (Negative) H 10/27/23 Unknown Urine Blood Negative (Negative) 10/27/23 Unknown Urine Nitrite Positive (Negative) A 10/27/23 Unknown Urine Bilirubin 2+ (Negative) H 10/27/23 Unknown Urine Urobilinogen Negative (Negative) 10/27/23 Unknown Ur Leukocyte Esterase Trace (Negative) H 10/27/23 Unknown Urine WBC (Auto) 1-5 /hpf (0-5) 10/27/23 Unknown Urine RBC (Auto) 5-10 /hpf (0-4) H 10/27/23 Unknown U Hyaline Cast (Auto) 5-10 /lpf (0-5) H 10/27/23 Unknown U Epithel Cells (Auto) 10-20 /lpf (0-5) H 10/27/23 Unknown Urine Bacteria (Auto) Negative (Negative) 10/27/23 Unknown Impressions Abdomen/Pelvis CT 10/28/23 22:14 Exam(s): CT ABDOMEN + PELVIS With Contrast IV Amt: 89ML OPTIRAY 320 EXAM: CT Abdomen and Pelvis With Intravenous Contrast CLINICAL HISTORY: Reason for exam: abdominal distension, increased pain per pt. TECHNIQUE: Axial computed tomography images of the abdomen and pelvis with intravenous contrast. Automated exposure control was utilized for the study. A dose lowering technique was utilized adhering to the principles of ALARA. CONTRAST: Patient received 89ML OPTIRAY 320 of IV contrast COMPARISON: 10/26/23 FINDINGS: Lung bases: Bilateral moderate sized pleural effusions with dependent atelectasis. ABDOMEN: Liver: Fatty infiltration of the liver. Gallbladder and bile ducts: Unremarkable. No ductal dilation. No evidence of acute cholecystitis or cholelithiasis. Pancreas: There are changes of acute edematous pancreatitis with extensive peripancreatic inflammatory changes. Pancreatic duct is not dilated. Spleen: Unremarkable. No splenomegaly. Adrenals: Unremarkable. No mass. Kidneys and ureters: Unremarkable. No solid mass. No hydronephrosis. Stomach and bowel: Unremarkable. No obstruction. No mucosal thickening. PELVIS: Appendix: No findings to suggest acute appendicitis. Bladder: Unremarkable. No mass. Reproductive: Unremarkable as visualized. ABDOMEN and PELVIS: Intraperitoneal space: Mild to moderate ascites. No free air. Bones/joints: No acute fracture. No dislocation. Soft tissues: Unremarkable. Vasculature: Unremarkable. No abdominal aortic aneurysm. Lymph nodes: Unremarkable. No enlarged lymph nodes. IMPRESSION: 1. Acute edematous pancreatitis 2. Mild to moderate ascites 3. Fatty liver 4. Bilateral moderate sized pleural effusions Electronically signed by: Jose De Jesus Castro MD 10/29/23 07:01 AM Abdomen Ultrasound 10/29/23 07:54 ULTRASOUND TO ASSESS FOR ASCITES CLINICAL HISTORY: Ascites. COMPARISON STUDY: CT of the abdomen and pelvis October 28, 2023. FINDINGS: Incidental note is made of increased hepatic echogenicity consistent with hepatic steatosis, as shown on CT. There is no perihepatic ascites. There is a small amount of ascites within the left upper quadrant and both lower quadrants. IMPRESSION: 1. Small amount of ascites. 2. Hepatic steatosis. ACT 112: Negative or not required by law. Electronically signed by: Newton Hdez M.D. 10/29/2023 10:25 AM ECG Additional Comments: EKG on presentation sinus tachycardia, rate 121 bpm otherwise normal tracing (2) Abdominal pain Abdominal location: unspecified location Qualified Code(s): R10.9 - Unspecified abdominal pain
--- NOTE | 2023-10-29 14:16 | Electrocardiogram Report ---
Test Reason : Blood Pressure : / mmHG Vent. Rate : 124 BPM Atrial Rate : 124 BPM P-R Int : 134 ms QRS Dur : 086 ms QT Int : 312 ms P-R-T Axes : 047 074 -03 degrees QTc Int : 448 ms Sinus tachycardia Nonspecific T wave abnormality Inferior leads Abnormal ECG When compared with ECG of 27-OCT-2023 08:06, No significant change was found Confirmed by Fredi Ignacio ([id number]) on 10/29/2023 2:16:32 PM Referred By: REFERRED SELF Confirmed By:Fredi Ignacio
[2023-10-29] MEDS: KETOROLAC TROMETHAMINE 15 MG/ML VIAL IV PRN ×2 (14:20→21:21)
--- NOTE | 2023-10-29 17:08 | Hospitalist Progress Note ---
Date of Service October 29, 2023 Assessment & Plan (1) Pancreatitis: (2) Abdominal pain: Plan: Patient is 18-year-old male with PMH ETOH use presented to ER with c/o upper abdominal pain started yesterday. Binge drinks 4 days a week. In ER afebrile, hypertensive, other vitals stable. WBC: 17, Lipase: 1829, T bili: 1.1, AST needs redrawn, ALT: 140, Alk phos: 59. Acute pancreatitis Secondary to alcohol abuse --CT Abd/pelvis: Moderate to severe acute pancreatitis. The gland enhances throughout, and there is no organized peripancreatic fluid collection. Small volume abdominopelvic ascites. Hepatomegaly and severe steatosis. --Repeat CT:Acute edematous pancreatitis. Mild to moderate ascites. Fatty liver. Bilateral moderate sized pleural effusions --USD fr Ascites:Small amount of ascites. Hepatic steatosis. --Lipase trending down -- Continue IV fluids, bowel rest -- Antiemetics as needed, pain control --Appreciate GI input -- Monitor LFTs, Lipase Counseled on alcohol cessation (3) Elevated blood pressure reading: Plan: Hypertensive urgency Sinus tachycardia Pain contributing as well Pain control IV labetalol as needed Started on low-dose metoprolol Appreciate Cardiology Input Monitor BP (4) Alcohol abuse: Plan: Alcohol use disorder Alcohol withdrawal Started on gabapentin protocol Continue thiamine, folic acid Monitor for withdrawal Counseled to quit drinking No significant alcohol withdrawal symptoms currently (5) Nicotine vapor product user: Plan: Cessation encouraged Nicotine patch DVT Px Ambulate, SCDs Admission and Anticipated Discharge Date Admission Date: October 26, 2023 Subjective Patient is seen and examined at bedside Subjectively feels abdominal pain better when compared yesterday Denies any nausea, vomiting, chest pain, dyspnea Discussed with GI today Also discussed with family at bedside No other complaints Review of Systems Review of Systems: All systems reviewed & are unremarkable except as noted in Subjective Physical Exam Physical Exam: Physical Exam: Vitals signs as noted above General Appearance:Obese, no apparent distress Head: normocephalic, Atraumatic Eyes: normal inspection, EOMI Neck: supple, Trachea midline Respiratory/Chest: Normal breath sounds, CTA, No accessory muscle use Cardiovascular: S1, S2, No murmur, +Tachycardia Abdomen/GI:Soft, Epigastric tender, mildly distended, Bowel sounds present Extremities/Musculoskeletal:normal inspection, no edema Neurologic/Psych:AAOX3, grossly no focal neurological deficits Skin: normal color, warm Results & Data Results & Data Vital Signs (Past 12 Hours) Vital Signs Temp Pulse Pulse Resp BP Pulse Ox O2 Del Method 10/29/23 16:13 109 H 10/29/23 15:59 36.9 C 99 H 16 157/90 H 96 Room Air 10/29/23 11:47 37.1 C 113 H 20 157/84 H 93 Room Air 10/29/23 08:16 36.9 C 113 H 16 172/81 H 95 Room Air 10/29/23 07:24 132 H Laboratory Results Short CBC 10/29/23 Range/Units 09:05 WBC 16.73 H (4.8-10.8) K/ul Hgb 14.5 (14.0-18.0) g/dl Hct 41.2 L (42.0-52.0) % Plt Count 227 (130-400) K/uL BMP 10/29/23 09:05 Sodium 131 L Potassium 4.1 Chloride 98 Carbon Dioxide 24 BUN 9 Creatinine 0.72 Glucose 95 Calcium 8.3 L Liver Function 10/29/23 Range/Units 09:05 Total Bilirubin 1.0 (0.2-1.0) mg/dl AST 18 (13-39) U/L ALT 34 (7-52) U/L Alkaline Phosphatase 48 (34-104) U/L Albumin 3.3 L (3.4-5.0) gm/dl (1) Pancreatitis Acute pancreatitis complication: unspecified Chronicity: acute Pancreatitis type: unspecified pancreatitis type Qualified Code(s): K85.90 - Acute pancreatitis without necrosis or infection, unspecified (2) Abdominal pain Abdominal location: unspecified location Qualified Code(s): R10.9 - Unspecified abdominal pain
[2023-10-29] MEDS: LABETALOL HCL IV 5 MG/ML 20ML IV PRN (23:07)
[2023-10-30] MEDS: MoRPHine SULFATE 2 MG/ML CARP IV PRN ×2 (00:24→21:25)
[2023-10-30] MEDS: LACTATED RINGER'S 1,000 ML IV SCH ×2 (02:32→10:11)
[2023-10-30] MEDS: NICOTINE 21 MG/24 HR TDSY TD SCH (08:04)
[2023-10-30] MEDS: METOPROLOL TARTRATE 25 MG TAB PO SCH ×2 (08:04→20:42)
[2023-10-30] MEDS: THIAMINE HCL 100 MG in SYRINGE 9 ML IV SCH (08:04)
[2023-10-30] MEDS: FOLIC ACID 1 MG in SYRINGE 9.8 ML IV SCH (08:05)
[2023-10-30] MEDS: FAMOTIDINE 20 MG in SYRINGE 3 ML IV SCH ×2 (08:08→20:41)
[2023-10-30] MEDS ORDERED: METOPROLOL TARTRATE 25 MG TAB PO ONE (08:52)
[2023-10-30] MEDS: KETOROLAC TROMETHAMINE 15 MG/ML VIAL IV PRN ×3 (10:06→23:35)
[2023-10-30 10:34] LABS: Hematocrit (blood only) 37.7 % (42.0-52.0); Hemoglobin 12.7 g/dl (14.0-18.0); Mean Corpuscular Hemoglobin 30.4 pg (25.0-34.0); Mean Corpuscular Hgb Conc 33.7 g/dL (32.0-36.0); Mean Corpuscular Volume 90.2 fL (80.0-100.0); Mean Platelet Volume 9.5 fL (9.4-12.4); Platelet Count 255 K/uL (130-400); RDW Coefficient of Variation 11.5 % (11.5-14.5); RDW Standard Deviation 38.5 fL (36.4-46.3); Red Blood Count 4.18 M/uL (4.70-6.10); White Blood Count 15.19 K/ul (4.8-10.8)
[2023-10-30 10:46] LABS: Alanine Aminotransferase 31 U/L (7-52); Albumin Globulin Ratio 1.1 (0.9-2); Albumin Level 3.3 gm/dl (3.4-5.0); Alkaline Phosphatase 58 U/L (34-104); Anion Gap 9 (3-11); Aspartate Aminotransferase 24 U/L (13-39); BUN Creatinine Ratio 16.7 (10-20); Bilirubin,Total 0.9 mg/dl (0.2-1.0); Blood Urea Nitrogen 11 mg/dl (6-23); Calcium 8.1 mg/dl (8.6-10.3); Carbon Dioxide 24 mmol/L (21-32); Chloride 97 mmol/L (98-107); Creatinine Clr Calc Pharmacy 256.3 ml/min; Est GFR (African American) > 150.0 ml/min; Est GFR (Non-African American) 139.2 ml/min; Globulin 2.9 gm/dl (2.5-4.0); Glucose 91 mg/dl (70-99(Fasting)); Magnesium 2.1 mg/dl (1.7-2.4); Potassium 3.9 mmol/L (3.5-5.1); Sodium 130 mmol/L (136-145); Total Protein 6.2 gm/dl (6.0-8.3)
[2023-10-30 12:26] LABS: Adenovirus F 40/41 PCR Not Detected (NotDetected); Astrovirus PCR Not Detected (NotDetected); Campylobacter PCR Not Detected (NotDetected); Cryptosporidium PCR Not Detected (NotDetected); Cyclospora cayetanensis PCR Not Detected (NotDetected); Entamoeba histolytica PCR Not Detected (NotDetected); Enteroaggregative E.coli(EAEC) Not Detected (NotDetected); Enteropathogenic E.coli (EPEC) Not Detected (NotDetected); Enterotoxigenic E.coli (ETEC) Not Detected (NotDetected); Giardia lamblia PCR Not Detected (NotDetected); Norovirus GI/GII PCR Not Detected (NotDetected); Plesiomonas shigelloides PCR Not Detected (NotDetected); Rotavirus A PCR Not Detected (NotDetected); Salmonella PCR Not Detected (NotDetected); Sapovirus PCR Not Detected (NotDetected); Shiga-like Toxin E.coli (STEC) Not Detected (NotDetected); Shigella/Enteroinvasive E.coli Not Detected (NotDetected); Vibrio cholerae PCR Not Detected (NotDetected); Vibrio species PCR Not Detected (NotDetected); Yersinia enterocolitica PCR Not Detected (NotDetected)
[2023-10-30] MEDS: LOSARTAN POTASSIUM 50 MG TAB PO SCH (12:40)
[2023-10-30] MEDS: LOPERAMIDE HCL 2 MG CAP PO PRN ×2 (13:31→20:42)
[2023-10-30] MEDS: ACETAMINOPHEN 1,000 MG/100 ML VIAL IV PRN (13:41)
--- NOTE | 2023-10-30 18:59 | Hospitalist Progress Note ---
Date of Service October 30, 2023 Assessment & Plan (1) Pancreatitis: (2) Abdominal pain: Plan: Patient is 18-year-old male with PMH ETOH use presented to ER with c/o upper abdominal pain started yesterday. Binge drinks 4 days a week. In ER afebrile, hypertensive, other vitals stable. WBC: 17, Lipase: 1829, T bili: 1.1, AST needs redrawn, ALT: 140, Alk phos: 59. Acute pancreatitis Secondary to alcohol abuse --CT Abd/pelvis: Moderate to severe acute pancreatitis. The gland enhances throughout, and there is no organized peripancreatic fluid collection. Small volume abdominopelvic ascites. Hepatomegaly and severe steatosis. --Repeat CT:Acute edematous pancreatitis. Mild to moderate ascites. Fatty liver. Bilateral moderate sized pleural effusions --USD fr Ascites:Small amount of ascites. Hepatic steatosis. --Lipase trending down -- Received IV fluids -- Antiemetics as needed, pain control --Appreciate GI input -- Monitor LFTs, Lipase Counseled on alcohol cessation Advanced diet as tolerated (3) Elevated blood pressure reading: Plan: Hypertensive urgency Sinus tachycardia --ECHO: Mild concentric LVH. Left ventricular wall motion is normal. EF 60 to 65%. No valvular disease or pericardial effusion. Continue metoprolol, losartan Adjust medications as needed IV labetalol as needed Appreciate Cardiology Input Monitor BP (4) Alcohol abuse: Plan: Alcohol use disorder Alcohol withdrawal Started on gabapentin protocol Continue thiamine, folic acid Monitor for withdrawal Counseled to quit drinking No significant alcohol withdrawal symptoms currently (5) Nicotine vapor product user: Plan: Cessation encouraged Nicotine patch DVT Px Ambulate, SCDs Admission and Anticipated Discharge Date Admission Date: October 26, 2023 Subjective Patient is seen and examined at bedside Abdominal pain much improved today Still has some diarrhea Tolerating current diet Denies any nausea, vomiting, chest pain, dyspnea Review of Systems Review of Systems: All systems reviewed & are unremarkable except as noted in Subjective Physical Exam Physical Exam: Physical Exam: Vitals signs as noted above General Appearance:Obese, no apparent distress Head: normocephalic, Atraumatic Eyes: normal inspection, EOMI Neck: supple, Trachea midline Respiratory/Chest: Normal breath sounds, CTA, No accessory muscle use Cardiovascular: S1, S2, No murmur, +Tachycardia Abdomen/GI:Soft, Epigastric tender, mildly distended, Bowel sounds present Extremities/Musculoskeletal:normal inspection, no edema Neurologic/Psych:AAOX3, grossly no focal neurological deficits Skin: normal color, warm Results & Data Results & Data Vital Signs (Past 12 Hours) Vital Signs Temp Pulse Pulse Resp BP Pulse Ox O2 Del Method 10/30/23 16:51 89 10/30/23 15:26 36.7 C 98 H 20 151/90 H 97 Room Air 10/30/23 10:58 36.8 C 97 H 18 166/94 H 94 Room Air 10/30/23 07:45 110 H 10/30/23 07:37 37.4 C 116 H 20 159/86 H 95 Room Air Laboratory Results Short CBC 10/30/23 Range/Units 09:57 WBC 15.19 H (4.8-10.8) K/ul Hgb 12.7 L (14.0-18.0) g/dl Hct 37.7 L (42.0-52.0) % Plt Count 255 (130-400) K/uL BMP 10/30/23 09:57 Sodium 130 L Potassium 3.9 Chloride 97 L Carbon Dioxide 24 BUN 11 Creatinine 0.66 Glucose 91 Calcium 8.1 L Liver Function 10/30/23 Range/Units 09:57 Total Bilirubin 0.9 (0.2-1.0) mg/dl AST 24 (13-39) U/L ALT 31 (7-52) U/L Alkaline Phosphatase 58 (34-104) U/L Albumin 3.3 L (3.4-5.0) gm/dl (1) Pancreatitis Acute pancreatitis complication: unspecified Chronicity: acute Pancreatitis type: unspecified pancreatitis type Qualified Code(s): K85.90 - Acute pancreatitis without necrosis or infection, unspecified (2) Abdominal pain Abdominal location: unspecified location Qualified Code(s): R10.9 - Unspecified abdominal pain
[2023-10-30] MEDS ORDERED: GABAPENTIN 600 MG TAB PO SCH (20:15)
[2023-10-31 07:23] LABS: Hemoglobin 13.2 g/dl (14.0-18.0); Mean Corpuscular Hemoglobin 31.1 pg (25.0-34.0); Mean Corpuscular Hgb Conc 34.7 g/dL (32.0-36.0); Mean Corpuscular Volume 89.6 fL (80.0-100.0); Mean Platelet Volume 9.3 fL (9.4-12.4); Platelet Count 277 K/uL (130-400); RDW Coefficient of Variation 11.6 % (11.5-14.5); RDW Standard Deviation 37.7 fL (36.4-46.3); Red Blood Count 4.24 M/uL (4.70-6.10); White Blood Count 15.55 K/ul (4.8-10.8)
[2023-10-31 07:30] LABS: Anion Gap 11 (3-11); Blood Urea Nitrogen 11 mg/dl (6-23); Carbon Dioxide 21 mmol/L (21-32); Chloride 100 mmol/L (98-107); Creatinine Clr Calc Pharmacy 284.4 ml/min; Est GFR (African American) > 150.0 ml/min; Est GFR (Non-African American) 146.8 ml/min; Glucose 92 mg/dl (70-99(Fasting)); Potassium 3.4 mmol/L (3.5-5.1); Sodium 132 mmol/L (136-145)
[2023-10-31] MEDS: KETOROLAC TROMETHAMINE 15 MG/ML VIAL IV PRN ×3 (08:19→23:46)
[2023-10-31] MEDS: LOPERAMIDE HCL 2 MG CAP PO PRN (08:19)
[2023-10-31] MEDS: SIMETHICONE 80 MG CHEW PO PRN (08:19)
[2023-10-31] MEDS: LOSARTAN POTASSIUM 50 MG TAB PO SCH (08:20)
[2023-10-31] MEDS: FOLIC ACID 1 MG in SYRINGE 9.8 ML IV SCH (08:20)
[2023-10-31] MEDS: THIAMINE HCL 100 MG in SYRINGE 9 ML IV SCH (08:20)
[2023-10-31] MEDS: NICOTINE 21 MG/24 HR TDSY TD SCH (08:21)
[2023-10-31] MEDS: FAMOTIDINE 20 MG in SYRINGE 3 ML IV SCH ×2 (08:23→20:23)
[2023-10-31] MEDS: METOPROLOL TARTRATE 25 MG TAB PO SCH ×3 (10:00→20:26)
[2023-10-31] MEDS: ACETAMINOPHEN 1,000 MG/100 ML VIAL IV PRN (10:07)
[2023-10-31] MEDS ORDERED: OPTIRAY 320 500ml IV ONE (11:34)
[2023-10-31] MEDS ORDERED: POTASSIUM CHLORIDE CRTAB 20 MEQ TABCR PO STA (11:42)
--- NOTE | 2023-10-31 12:29 | CT Scan Report ---
CT SCAN OF THE ABDOMEN AND PELVIS WITH IV CONTRAST CLINICAL HISTORY: Generalized abdominal pain. Pancreatitis. COMPARISON STUDY: Abdominal CT scans dated 10/28/2023 and 10/26/2023. TECHNIQUE: Following the IV administration of 83 cc of Optiray 320, CT scan of the abdomen and pelvi s is performed from the lung bases to the proximal femora. Images are reviewed in the axial, sagittal , and coronal planes. IV contrast was administered without complication. A dose lowering technique wa s utilized adhering to the principles of ALARA. CT DOSE: 1543.65 mGy.cm FINDINGS: Lung bases: The heart is normal in size and without pericardial effusion. There are [id number] pleural effusions with dependent consolidation. These are unchanged modest decreased from previous. Liver: The contrast-enhanced liver is enlarged, measuring 27.4 cm in length. The liver demonstrates d iffusely decreased attenuation indicating severe steatosis. Fatty sparing is seen adjacent to the gal lbladder fossa. There is no intrahepatic biliary ductal dilatation. The hepatic veins and portal vein s are patent. Gallbladder: Unremarkable. Spleen: Normal in size and attenuation. Pancreas: The pancreas is edematous with surrounding infiltration and fluid. The gland enhances throu ghout. No organized peripancreatic fluid collection is identified. The pancreatic duct is normal in c aliber. The splenic vein is patent. Adrenal glands: Unremarkable. Kidneys: The contrast enhanced kidneys are normal in size and without hydronephrosis. The kidneys enh ance symmetrically. Abdominal vasculature: The abdominal aorta is normal in course and caliber. Bowel: There is no bowel obstruction. The appendix is well-visualized and normal. Peritoneum: There is a small volume of abdominopelvic ascites. Retroperitoneal fluid is seen around t he pancreas. No intraperitoneal free air is identified. Lymphadenopathy: None. Pelvic viscera: The bladder, prostate, and seminal vesicles are normal as imaged. Skeletal structures: No lytic or blastic lesions are seen. Mild sclerotic change is noted in the sacr oiliac joints. IMPRESSION: 1. Findings of acute pancreatitis are similar to the 10/28/2023 examination. 2. The gland enhances throughout and there is no organized peripancreatic fluid collection. 3. Abdominopelvic ascites. 4. Hepatomegaly and severe steatosis. 5. Left larger than right pleural effusions with dependent consolidation. These are unchanged to mild ly decreased in size from 10/28/2023. 6. Additional findings as above. ACT 112: Negative or not required by law. Electronically signed by: Nabil Mays M.D. 10/31/2023 12:28 PM
[2023-10-31] MEDS: MoRPHine SULFATE 2 MG/ML CARP IV PRN ×4 (13:15→23:08)
--- NOTE | 2023-10-31 13:29 | Hospitalist Progress Note ---
Date of Service October 31, 2023 Assessment & Plan (1) Pancreatitis: (2) Abdominal pain: Plan: Patient is 18-year-old male with PMH ETOH use presented to ER with c/o upper abdominal pain for 1 day Acute pancreatitis Alcohol use disorder Patient presented with abdominal pain. History of binge drinking for 4 days. --CT Abd/pelvis on admission: Moderate to severe acute pancreatitis. The gland enhances throughout, and there is no organized peripancreatic fluid collection. Small volume abdominopelvic ascites. Hepatomegaly and severe steatosis. --Repeat CT:Acute edematous pancreatitis. Mild to moderate ascites. Fatty liver. Bilateral moderate sized pleural effusions --USD fr Ascites:Small amount of ascites. Hepatic steatosis. Repeat CT abdomen pelvis today shows findings similar to admission. No organized peripancreatic fluid collection. -- Antiemetics as needed, pain control -- Monitor LFTs Counseled on alcohol cessation Advanced diet as tolerated (3) Elevated blood pressure reading: Plan: Hypertensive urgency Sinus tachycardia --ECHO: Mild concentric LVH. Left ventricular wall motion is normal. EF 60 to 65%. No valvular disease or pericardial effusion. Continue metoprolol, losartan (4) Alcohol abuse: Plan: Alcohol use disorder Alcohol withdrawal on gabapentin protocol Continue thiamine, folic acid Monitor for withdrawal Counseled to quit drinking No significant alcohol withdrawal symptoms currently (5) Nicotine vapor product user: Plan: Cessation encouraged Nicotine patch DVT Px Ambulate, SCDs Dispositioncontinues to be hospitalized due to significant epigastric pain secondary to acute pancreatitis. Time spent evaluating patient, direct bedside care, chart review, placing orders, interpretation of diagnostic studies, discussion with consultants, patient, and family members, as well as other required patient management activities is 50 minutes Please note the above document was generated using voice recognition software. It may contain grammatical, syntax or spelling errors. Any formal questions or concerns about the content, text or information contained within the body of this dictation should be directly addressed to the provider for clarification Admission and Anticipated Discharge Date Admission Date: October 26, 2023 Subjective Patient seen and examined at bedside. He reports significant epigastric pain. Discussed regarding fever in the morning. He reports that the temperature in the room was set up high resulting in the fever. He denies getting chills. Currently afebrile. Review of Systems Review of Systems: All systems reviewed & are unremarkable except as noted in Subjective Physical Exam Physical Exam: Constitutional: Alert oriented x 3; in moderate distress due to pain. Respiratory: Bilateral vesicular breath Cardiovascular: RRR, no murmur, no edema Vessels: no JVD or carotid bruit Chest: normal inspection of chest Abdomen: Tenderness in epigastric region. Musculoskeletal: no cyanosis or clubbing, extremities motor strength 5/5 Skin: no rashes, warm and dry normal turgor Neurologic: PERRL, EOMI, accommodation nl, no face palsy, no dysarthria CN's II- XI intact bilaterally and moves all extremities Psychiatric: A+Ox3, euthymic affect Results & Data Results & Data Vital Signs (Past 12 Hours) Vital Signs Temp Pulse Pulse Resp BP Pulse Ox O2 Del Method 10/31/23 12:06 36.8 C 91 H 15 170/96 H 95 Room Air 10/31/23 07:52 37.8 C H 100 H 14 176/102 H 94 Room Air 10/31/23 07:20 97 H (1) Pancreatitis Acute pancreatitis complication: unspecified Chronicity: acute Pancreatitis type: unspecified pancreatitis type Qualified Code(s): K85.90 - Acute pancreatitis without necrosis or infection, unspecified (2) Abdominal pain Abdominal location: unspecified location Qualified Code(s): R10.9 - Unspecified abdominal pain
[2023-11-01] MEDS: MoRPHine SULFATE 2 MG/ML CARP IV PRN ×2 (03:57→09:57)
[2023-11-01] MEDS: KETOROLAC TROMETHAMINE 15 MG/ML VIAL IV PRN ×2 (06:33→19:40)
[2023-11-01 06:53] LABS: Hematocrit (blood only) 38.3 % (42.0-52.0); Hemoglobin 13.3 g/dl (14.0-18.0); Mean Corpuscular Hemoglobin 30.7 pg (25.0-34.0); Mean Corpuscular Hgb Conc 34.7 g/dL (32.0-36.0); Mean Corpuscular Volume 88.5 fL (80.0-100.0); Mean Platelet Volume 8.9 fL (9.4-12.4); Platelet Count 321 K/uL (130-400); RDW Coefficient of Variation 11.7 % (11.5-14.5); RDW Standard Deviation 37.5 fL (36.4-46.3); Red Blood Count 4.33 M/uL (4.70-6.10); White Blood Count 20.08 K/ul (4.8-10.8)
[2023-11-01 07:15] LABS: Anion Gap 10 (3-11); BUN Creatinine Ratio 16.1 (10-20); Blood Urea Nitrogen 10 mg/dl (6-23); Calcium 8.3 mg/dl (8.6-10.3); Carbon Dioxide 22 mmol/L (21-32); Chloride 99 mmol/L (98-107); Creatinine Clr Calc Pharmacy 266.6 ml/min; Est GFR (African American) > 150.0 ml/min; Est GFR (Non-African American) 142.8 ml/min; Glucose 96 mg/dl (70-99(Fasting)); Potassium 3.6 mmol/L (3.5-5.1); Sodium 131 mmol/L (136-145)
[2023-11-01] MEDS ORDERED: CEFEPIME 1,000 MG in SYRINGE 0 ML IV SCH (07:30)
[2023-11-01] MEDS ORDERED: LACTATED RINGER'S 1,000 ML IV SCH (07:45)
[2023-11-01 07:52] LABS: Basophils # (auto) 0.12 K/uL (0.00-0.20); Basophils % (auto) 0.6 %; Eosinophils # (auto) 0.24 K/uL (0.00-0.50); Eosinophils % (auto) 1.2 %; Immature Granulocytes # (auto) 0.99 K/uL (0.01-0.20); Immature Granulocytes % (auto) 4.9 %; Lymphocytes # (auto) 1.27 K/uL (1.20-3.40); Lymphocytes % (auto) 6.3 %; Monocytes # (auto) 3.48 K/uL (0.11-0.59); Monocytes % (auto) 17.4 %; Neutrophils # (auto) 13.92 K/uL (1.40-6.50); Neutrophils % (auto) 69.6 %
[2023-11-01] MEDS: FAMOTIDINE 20 MG in SYRINGE 3 ML IV SCH ×2 (08:01→20:50)
[2023-11-01] MEDS: metroNIDAZOLE 500 MG/100 ML BAG IV SCH ×3 (08:04→23:13)
[2023-11-01] MEDS: CEFEPIME 2,000 MG in SYRINGE 0 ML IV SCH ×3 (08:18→20:49)
[2023-11-01] MEDS: METOPROLOL TARTRATE 25 MG TAB PO SCH ×2 (08:19→19:43)
[2023-11-01] MEDS: LOSARTAN POTASSIUM 50 MG TAB PO SCH (08:19)
[2023-11-01] MEDS: NICOTINE 21 MG/24 HR TDSY TD SCH (08:23)
[2023-11-01] MEDS: FOLIC ACID 1 MG in SYRINGE 9.8 ML IV SCH (08:23)
[2023-11-01] MEDS: THIAMINE HCL 100 MG in SYRINGE 9 ML IV SCH (09:30)
[2023-11-01] MEDS: LOPERAMIDE HCL 2 MG CAP PO PRN (09:58)
[2023-11-01] MEDS: HYDROmorphone INJ 0.5 MG/0.5 ML SYR IV PRN ×3 (11:40→20:48)
--- NOTE | 2023-11-01 12:50 | Hospitalist Progress Note ---
Date of Service November 01, 2023 Assessment & Plan (1) Pancreatitis: (2) Abdominal pain: Plan: Patient is 18-year-old male with PMH ETOH use presented to ER with c/o upper abdominal pain for 1 day Acute pancreatitis Alcohol use disorder Patient presented with abdominal pain. History of binge drinking for 4 days. --CT Abd/pelvis on admission: Moderate to severe acute pancreatitis. The gland enhances throughout, and there is no organized peripancreatic fluid collection. Small volume abdominopelvic ascites. Hepatomegaly and severe steatosis. --Repeat CT:Acute edematous pancreatitis. Mild to moderate ascites. Fatty liver. Bilateral moderate sized pleural effusions --USD fr Ascites:Small amount of ascites. Hepatic steatosis. Repeat CT abdomen pelvis on October 31, 2022 shows findings similar to admission. No organized peripancreatic fluid collection. Patient had febrile episodes yesterday and today; started on cefepime and Flagyl. Blood culture does not show growth in 24 hours. Plan to stop antibiotics if blood culture continues to be negative for 48 hours and no other source of infection is identified. Continue supportive care with pain control. Patient was started on IV fluids. He did not want the IV fluids. He was encouraged oral hydration. (3) Elevated blood pressure reading: Plan: Hypertensive urgency Sinus tachycardia --ECHO: Mild concentric LVH. Left ventricular wall motion is normal. EF 60 to 65%. No valvular disease or pericardial effusion. Continue metoprolol, losartan Pretension likely secondary to pain. (4) Alcohol abuse: Plan: Alcohol use disorder Alcohol withdrawal on gabapentin protocol Monitor for withdrawal Counseled to quit drinking No significant alcohol withdrawal symptoms currently (5) Nicotine vapor product user: Plan: Cessation encouraged Nicotine patch DVT Px Ambulate, SCDs Dispositioncontinues to be hospitalized due to significant epigastric pain secondary to acute pancreatitis. Low-grade fever yesterday. Continue to monitor vital signs. Time spent evaluating patient, direct bedside care, chart review, placing orders, interpretation of diagnostic studies, discussion with consultants, patient, and family members, as well as other required patient management activities is 50 minutes Please note the above document was generated using voice recognition software. It may contain grammatical, syntax or spelling errors. Any formal questions or concerns about the content, text or information contained within the body of this dictation should be directly addressed to the provider for clarification Admission and Anticipated Discharge Date Admission Date: October 26, 2023 Subjective Patient seen and examined at the bedside. He reports epigastric and left lower quadrant pain. Low-grade fever overnight. Review of Systems Review of Systems: All systems reviewed & are unremarkable except as noted in Subjective Physical Exam Physical Exam: Constitutional: Alert oriented x 3; in moderate distress due to pain. Respiratory: Bilateral vesicular breath Cardiovascular: RRR, no murmur, no edema Vessels: no JVD or carotid bruit Chest: normal inspection of chest Abdomen: Tenderness in epigastric region. Musculoskeletal: no cyanosis or clubbing, extremities motor strength 5/5 Skin: no rashes, warm and dry normal turgor Neurologic: PERRL, EOMI, accommodation nl, no face palsy, no dysarthria CN's II- XI intact bilaterally and moves all extremities Psychiatric: A+Ox3, euthymic affect Results & Data Results & Data Vital Signs (Past 12 Hours) Vital Signs Temp Pulse Pulse Resp BP BP Pulse Ox 11/01/23 11:41 36.5 C 95 H 15 174/104 H 95 11/01/23 10:09 96 H 169/98 H 11/01/23 07:47 36.6 C 89 15 177/99 H 95 11/01/23 06:00 102 H 11/01/23 03:32 36.8 C 100 H 20 177/102 H 95 11/01/23 01:22 103 H O2 Del Method 11/01/23 11:41 Room Air 11/01/23 10:09 11/01/23 07:47 Room Air 11/01/23 06:00 11/01/23 03:32 Room Air 11/01/23 01:22 (1) Pancreatitis Acute pancreatitis complication: unspecified Chronicity: acute Pancreatitis type: unspecified pancreatitis type Qualified Code(s): K85.90 - Acute pancreatitis without necrosis or infection, unspecified (2) Abdominal pain Abdominal location: unspecified location Qualified Code(s): R10.9 - Unspecified abdominal pain
[2023-11-01] MEDS: ENOXAPARIN INJ 40 MG/0.4 ML SYR SQ SCH (14:00)
[2023-11-01] MEDS ORDERED: HYDROmorphone INJ 0.5 MG/0.5 ML SYR IV STA (21:31)
[2023-11-01] MEDS: SIMETHICONE 80 MG CHEW PO PRN (21:33)
[2023-11-02] MEDS: HYDROmorphone INJ 0.5 MG/0.5 ML SYR IV PRN ×4 (01:57→23:16)
[2023-11-02] MEDS: KETOROLAC TROMETHAMINE 15 MG/ML VIAL IV PRN (06:26)
[2023-11-02 06:40] LABS: Hematocrit (blood only) 40.5 % (42.0-52.0); Hemoglobin 14.6 g/dl (14.0-18.0); Mean Corpuscular Hemoglobin 31.1 pg (25.0-34.0); Mean Corpuscular Volume 86.4 fL (80.0-100.0); Mean Platelet Volume 8.9 fL (9.4-12.4); Platelet Count 405 K/uL (130-400); RDW Coefficient of Variation 11.5 % (11.5-14.5); RDW Standard Deviation 36.8 fL (36.4-46.3); Red Blood Count 4.69 M/uL (4.70-6.10); White Blood Count 25.05 K/ul (4.8-10.8)
[2023-11-02 07:04] LABS: Basophils # (auto) 0.19 K/uL (0.00-0.20); Basophils % (auto) 0.8 %; Eosinophils # (auto) 0.38 K/uL (0.00-0.50); Eosinophils % (auto) 1.5 %; Immature Granulocytes # (auto) 1.78 K/uL (0.01-0.20); Immature Granulocytes % (auto) 7.1 %; Lymphocytes # (auto) 1.82 K/uL (1.20-3.40); Lymphocytes % (auto) 7.3 %; Monocytes # (auto) 3.65 K/uL (0.11-0.59); Monocytes % (auto) 14.6 %; Neutrophils # (auto) 17.23 K/uL (1.40-6.50); Neutrophils % (auto) 68.7 %
[2023-11-02 07:11] LABS: Anion Gap 11 (3-11); BUN Creatinine Ratio 11.9 (10-20); Blood Urea Nitrogen 8 mg/dl (6-23); Calcium 8.7 mg/dl (8.6-10.3); Carbon Dioxide 24 mmol/L (21-32); Chloride 98 mmol/L (98-107); Creatinine Clr Calc Pharmacy 244.2 ml/min; Est GFR (African American) > 150.0 ml/min; Est GFR (Non-African American) 138.3 ml/min; Glucose 97 mg/dl (70-99(Fasting)); Potassium 3.6 mmol/L (3.5-5.1); Sodium 133 mmol/L (136-145)
[2023-11-02] MEDS: CEFEPIME 2,000 MG in SYRINGE 0 ML IV SCH ×3 (07:55→23:17)
[2023-11-02] MEDS: metroNIDAZOLE 500 MG/100 ML BAG IV SCH ×3 (08:10→23:17)
[2023-11-02] MEDS: NICOTINE 21 MG/24 HR TDSY TD SCH (08:11)
[2023-11-02] MEDS: METOPROLOL TARTRATE 25 MG TAB PO SCH ×2 (08:11→20:07)
[2023-11-02] MEDS: LOSARTAN POTASSIUM 50 MG TAB PO SCH (08:12)
[2023-11-02] MEDS: FAMOTIDINE 20 MG in SYRINGE 3 ML IV SCH (09:24)
[2023-11-02] MEDS: FOLIC ACID 1 MG in SYRINGE 9.8 ML IV SCH (09:25)
[2023-11-02] MEDS: ENOXAPARIN INJ 40 MG/0.4 ML SYR SQ SCH (09:25)
[2023-11-02] MEDS: PANTOprazole 40 MG TAB PO SCH (11:41)
[2023-11-02] MEDS: HYDROCODONE/ACETAMOPHEN 5/325MG TAB PO PRN ×2 (11:44→20:08)
--- NOTE | 2023-11-02 12:10 | Hospitalist Progress Note ---
Date of Service November 02, 2023 Assessment & Plan (1) Pancreatitis: (2) Abdominal pain: Plan: Patient is 18-year-old male with PMH ETOH use presented to ER with c/o upper abdominal pain for 1 day Acute pancreatitis Alcohol use disorder Patient presented with abdominal pain. History of binge drinking for 4 days. --CT Abd/pelvis on admission: Moderate to severe acute pancreatitis. The gland enhances throughout, and there is no organized peripancreatic fluid collection. Small volume abdominopelvic ascites. Hepatomegaly and severe steatosis. --Repeat CT:Acute edematous pancreatitis. Mild to moderate ascites. Fatty liver. Bilateral moderate sized pleural effusions --USD fr Ascites:Small amount of ascites. Hepatic steatosis. Repeat CT abdomen pelvis on October 31, 2022 shows findings similar to admission. No organized peripancreatic fluid collection. Blood cultureno growth in 48 hours Continue on antibiotics for now. Patient febrile overnight. Ibuprofen along with Protonix ordered for pain control along with [place]. Discu ssed with patient to prioritize oral pain medication over IV. Encourage oral hydration. (3) Elevated blood pressure reading: Plan: Hypertensive urgency Sinus tachycardia --ECHO: Mild concentric LVH. Left ventricular wall motion is normal. EF 60 to 65%. No valvular disease or pericardial effusion. Continue metoprolol, losartan Hypertension likely secondary to pain. (4) Alcohol abuse: Plan: Alcohol use disorder Alcohol withdrawal on gabapentin protocol Monitor for withdrawal Counseled to quit drinking No significant alcohol withdrawal symptoms currently (5) Nicotine vapor product user: Plan: Cessation encouraged Nicotine patch DVT Px Ambulate, SCDs Dispositioncontinues to be hospitalized due to significant epigastric pain secondary to acute pancreatitis. Had low-grade fever yesterday. Continue to monitor; provide supportive care with hydration and pain control.. Time spent evaluating patient, direct bedside care, chart review, placing orders, interpretation of diagnostic studies, discussion with consultants, patient, and family members, as well as other required patient management activities is 50 minutes Please note the above document was generated using voice recognition software. It may contain grammatical, syntax or spelling errors. Any formal questions or concerns about the content, text or information contained within the body of this dictation should be directly addressed to the provider for clarification Admission and Anticipated Discharge Date Admission Date: October 26, 2023 Subjective Patient seen and examined at bedside. He continues to report lower abdominal pain. Denies diarrhea. 1 episode of fever overnight. Review of Systems Review of Systems: All systems reviewed & are unremarkable except as noted in Subjective Physical Exam Physical Exam: Constitutional: Alert oriented x 3; in moderate distress due to pain. Respiratory: Bilateral vesicular breath Cardiovascular: RRR, no murmur, no edema Vessels: no JVD or carotid bruit Chest: normal inspection of chest Abdomen: Tenderness in epigastric region. Musculoskeletal: no cyanosis or clubbing, extremities motor strength 5/5 Skin: no rashes, warm and dry normal turgor Neurologic: PERRL, EOMI, accommodation nl, no face palsy, no dysarthria CN's II- XI intact bilaterally and moves all extremities Psychiatric: A+Ox3, euthymic affect Results & Data Results & Data Vital Signs (Past 12 Hours) Vital Signs Temp Pulse Pulse Resp BP Pulse Ox O2 Del Method 11/02/23 07:21 36.7 C 94 H 16 167/98 H 93 Room Air 11/02/23 05:57 98 H 11/02/23 02:01 37.9 C H 93 H 18 176/100 H 95 Room Air (1) Pancreatitis Acute pancreatitis complication: unspecified Chronicity: acute Pancreatitis type: unspecified pancreatitis type Qualified Code(s): K85.90 - Acute pancreatitis without necrosis or infection, unspecified (2) Abdominal pain Abdominal location: unspecified location Qualified Code(s): R10.9 - Unspecified abdominal pain
[2023-11-02] MEDS: ONDANSETRON INJ 2 MG/ML 2 ML VIAL IV PRN (13:27)
[2023-11-02] MEDS: IBUPROFEN 600 MG TAB PO PRN (14:29)
[2023-11-02] MEDS: LOPERAMIDE HCL 2 MG CAP PO PRN (20:08)
[2023-11-03 07:14] LABS: Hematocrit (blood only) 41.3 % (42.0-52.0); Hemoglobin 14.1 g/dl (14.0-18.0); Mean Corpuscular Hemoglobin 30.5 pg (25.0-34.0); Mean Corpuscular Hgb Conc 34.1 g/dL (32.0-36.0); Mean Corpuscular Volume 89.4 fL (80.0-100.0); Mean Platelet Volume 8.9 fL (9.4-12.4); Platelet Count 448 K/uL (130-400); RDW Coefficient of Variation 11.9 % (11.5-14.5); RDW Standard Deviation 38.5 fL (36.4-46.3); Red Blood Count 4.62 M/uL (4.70-6.10); White Blood Count 23.88 K/ul (4.8-10.8)
[2023-11-03 07:25] LABS: Anion Gap 9 (3-11); BUN Creatinine Ratio 11.4 (10-20); Blood Urea Nitrogen 8 mg/dl (6-23); Calcium 8.7 mg/dl (8.6-10.3); Carbon Dioxide 27 mmol/L (21-32); Chloride 98 mmol/L (98-107); Creatinine Clr Calc Pharmacy 233.2 ml/min; Est GFR (African American) > 150.0 ml/min; Est GFR (Non-African American) 135.9 ml/min; Glucose 99 mg/dl (70-99(Fasting)); Sodium 134 mmol/L (136-145)
[2023-11-03 07:38] LABS: Basophils # (auto) 0.19 K/uL (0.00-0.20); Basophils % (auto) 0.8 %; Eosinophils # (auto) 0.36 K/uL (0.00-0.50); Eosinophils % (auto) 1.5 %; Immature Granulocytes # (auto) 1.38 K/uL (0.01-0.20); Immature Granulocytes % (auto) 5.8 %; Lymphocytes # (auto) 1.32 K/uL (1.20-3.40); Lymphocytes % (auto) 5.5 %; Monocytes # (auto) 2.47 K/uL (0.11-0.59); Monocytes % (auto) 10.3 %; Neutrophils # (auto) 18.16 K/uL (1.40-6.50); Neutrophils % (auto) 76.1 %; RBC Morphology Unremarkable
[2023-11-03] MEDS: HYDROCODONE/ACETAMOPHEN 5/325MG TAB PO PRN (07:45)
[2023-11-03] MEDS: CEFEPIME 2,000 MG in SYRINGE 0 ML IV SCH (08:04)
[2023-11-03] MEDS: FOLIC ACID 1 MG in SYRINGE 9.8 ML IV SCH (08:05)
[2023-11-03] MEDS: METOPROLOL TARTRATE 25 MG TAB PO SCH (08:05)
[2023-11-03] MEDS: metroNIDAZOLE 500 MG/100 ML BAG IV SCH (08:06)
[2023-11-03] MEDS: PANTOprazole 40 MG TAB PO SCH (08:06)
[2023-11-03] MEDS: LOSARTAN POTASSIUM 50 MG TAB PO SCH (08:06)
[2023-11-03] MEDS: ENOXAPARIN INJ 40 MG/0.4 ML SYR SQ SCH (08:14)
[2023-11-03] MEDS: NICOTINE 21 MG/24 HR TDSY TD SCH (08:15)
[2023-11-03] MEDS: IBUPROFEN 600 MG TAB PO PRN (09:21)
--- NOTE | 2023-11-03 15:28 | Discharge Summary ---
Date of Service November 03, 2023 Admission HPI Per Admitting Provider Patient is 18-year-old male with PMH ETOH use presented to ER with c/o upper abdominal pain started yesterday. Patient states sharp pain to epigastric area with some radiation across upper abdomen. Pain started around 11:00am and pain has progressed. Rates pain 10/10 on pain scale. Reports was seen at [facility] last night and diagnosed with pancreatitis and discharged home with antiemetics and pain medications. Patient states pain progressed and this morning had vomiting after attempting to eat. States drinks half of 1/5 liquor 4 nights a week. Last drink 2 days ago. Denies history alcohol withdrawal. Reports vapes. Denies recreational drug use. Denies history pancreatitis in the past. Denies fever/chills, diaphoresis, hematemesis, diarrhea, constipation, DE, dizziness, syncope, CP, SOB, cough, sore throat, rhinorrhea, back pain, paresthesias, weakness, extremity edema, rashes, urinary symptoms. Admission Exam Per Admitting Provider General: + distress secondary to abdominal pain, obese Head: normocephalic, atraumatic Eyes: conjunctiva non-injected, anicteric ENT: normal inspection external ears, nose, mucous membranes mildly dry Neck: supple, trachea midline Lungs: clear, no respiratory distress, no wheezing/rhonchi/rales CV: RRR, no murmur, no pretibial edema Abd: protuberant, normal BS, soft, +tenderness epigastric, RUQ, LUQ with guarding Ext: no cyanosis, no calf tenderness Neuro: A&O x 3, no focal deficits noted, normal affect Skin: warm, dry Principal Diagnosis Acute pancreatitis Discharge Exam Constitutional: Alert oriented x 3; in moderate distress due to pain. Respiratory: Bilateral vesicular breath Cardiovascular: RRR, no murmur, no edema Vessels: no JVD or carotid bruit Chest: normal inspection of chest Abdomen: Tenderness in epigastric region. Musculoskeletal: no cyanosis or clubbing, extremities motor strength 5/5 Skin: no rashes, warm and dry normal turgor Neurologic: PERRL, EOMI, accommodation nl, no face palsy, no dysarthria CN's II- XI intact bilaterally and moves all extremities Psychiatric: A+Ox3, euthymic affect Discharge Data Allergies Allergy/AdvReac Type Severity Reaction Status Date / Time bee venom protein (honey bee) Allergy Intermediate Swelling @ Verified 10/26/23 16:10 site Consultations 10/26/23 15:11 ED Decision to Admit Stat 10/26/23 16:28 Consult Gastroenterology Routine 10/28/23 13:35 Consult Cardiology Routine Ordered Studies 10/26/23 13:53 CT abd pelvis IV con only Stat 10/28/23 22:14 CT abd pelvis IV con only Urgent 10/29/23 07:54 US abdomen ltd ascites Routine 10/31/23 09:53 CT Abd and Pelvis [CT abd pelvis IV con only] Routine Hospital Course (1) Pancreatitis: (2) Abdominal pain: Patient is 18-year-old male with PMH ETOH use presented to ER with c/o upper abd ominal pain for 1 day Acute pancreatitis Alcohol use disorder Patient presented with abdominal pain. History of binge drinking for 4 days. --CT Abd/pelvis on admission: Moderate to severe acute pancreatitis. The gland enhances throughout, and there is no organized peripancreatic fluid collection. Small volume abdominopelvic ascites. Hepatomegaly and severe steatosis. --Repeat CT:Acute edematous pancreatitis. Mild to moderate ascites. Fatty liver. Bilateral moderate sized pleural effusions --USD fr Ascites:Small amount of ascites. Hepatic steatosis. Repeat CT abdomen pelvis on October 31, 2022 shows findings similar to admission. No organized peripancreatic fluid collection. Blood cultureno growth in 48 hours During the hospitalization, he was managed with IV fluids, analgesics and supportive care. He was started on antibiotic due to episodes of fever. At discharge, patient reported improvement in pain. He was tolerating diet. He was discharged on 3 days of antibiotics, pain medication and Protonix. He was asked to follow-up with his primary care doctor. (3) Elevated blood pressure reading: Hypertensive urgency Sinus tachycardia --ECHO: Mild concentric LVH. Left ventricular wall motion is normal. EF 60 to 65%. No valvular disease or pericardial effusion. At discharge, he was started on metoprolol and losartan as recommendation by cardiology. Total Time Total Time Spent Total Time Spent (In Minutes): 35 Total Time Includes: Examination of the Patient, Discharge Planning, Medication Reconciliation, Communication With Other Providers and Other Discharge Plan Discharge Items Patient Disposition: Home - Self-Care Reason For Visit: PANCREATITIS Discharge Diagnosis: Acute pancreatitis Activity: Resume your previous activity Non-emergency contact: Primary Care Provider Call non-emergency contact if: you have any medication questions and your symptoms worsen Follow-up/Referrals: Se Barcenas PA-C [Outside Practitioners] - 11/08/23 8:40 am Diet: Low Fat Addtl Attending Provider Instructions: You were admitted to the hospital due to acute pancreatitis from October 26, 2023 to November 03, 2023. You received IV antibiotics, pain medication and fluids during the hospit alization. You received following narcotics for pain control during the hospitalization: Hydromorphone Hydrocodone Oxycodone Morphine You are prescribed ciprofloxacin 500 mg twice a day and Flagyl 500 mg 3 times a day for 3 more days to complete the antibiotic course. He was seen by [facility] during the hospitalization due to high blood pressure. You are prescribed metoprolol 25 mg twice a day and losartan 50 mg once a day for it. Please follow-up with your primary care doctor regarding management of your blood pressure. Please follow-up with your primary care doctor as scheduled. Please repeat blood work (CBC and CMP) during your visit. Pending Studies at Discharge: No Stand-Alone Forms: [employer], Work/School Release, Smoking Cessation Medications and DC Order Prescriptions: New losartan 50 mg Tablet 50 mg PO QAM Qty: 30 0RF pantoprazole 40 mg Tablet,Delayed Release (Dr/Ec) 40 mg PO QAM Qty: 30 0RF ibuprofen 600 mg Tablet 600 mg PO Q8H PRN (Reason: fever or pain) Qty: 20 0RF metoprolol tartrate 25 mg Tablet 25 mg PO BID Qty: 60 0RF ciprofloxacin HCl 500 mg tablet 500 mg PO BID 3 Days Qty: 6 0RF metronidazole 500 mg tablet 500 mg PO Q8H 3 Days Qty: 9 0RF Continued hydrocodone-acetaminophen 5-300 mg tablet 1 tab PO DIRECTED PRN (Reason: Pain) Discontinued ondansetron HCl 4 mg tablet 4 mg PO Q4 PRN (Reason: Nausea) Discharge Orders: Discharge Order (Routine); Ordered 11/03/23 Ordered By: James Dahl Admission Data Admit Date/Time: 10/26/23 16:16 Attending Provider: James Dahl Admit Provider: Luly Waite Primary Care Provider: Claudy Booth Other Providers: Luly Waite; Jing Ricks; Rush Pizano Other Interventions: Discharge Summary Assessment (RN) Last Done: 11/03/23 11:00
== END 2023-11-03 12:08 | disposition home or self-care (01) | DRG 440 ==
LOC: ED 12:12 → EDINP 16:16 → SUATTDRO 16:16 → 2N 22:14